=== PATIENT | female | born 1995 | race African-American/Black ===

== ENCOUNTER 2024-09-08 22:57 | Day surgery (SDC) | payer OTHER, SELFPAY ==
--- NOTE | ~2024-09-08 | US_ITS ---
EXAMINATION: US INTRAOPERATIVE HISTORY: d C COMPARISON: Comparison is made with the prior examination dated 09/09/2024. FINDINGS: Ultrasound guidance was provided for a D&C in the OR. US/US guide intraoperative IMPRESSION: Ultrasound guidance for D&C. Electronically signed by: Chase Cornejo MD 09/09/2024 07:14 AM EDT
--- NOTE | ~2024-09-08 | US_ITS ---
CLINICAL HISTORY: aborting, retained products? US OB transabdominal and transvaginal Comparison: None Findings: Transabdominal scanning performed for overall anatomy. Transvaginal scanning performed for additional detail. Uterus measures 12 x 5.6 x 6 cm. There is an irregularly-shaped gestational sac and small yolk sac within the lower uterine segment/cervix. Gestational sac measures 3.8 x 1 x 1.2 cm. No pole is seen at this time. Bilateral ovaries were not able to be visualized. There is no free fluid in the pelvis. IMPRESSION: Irregularly-shaped gestational sac with a small yolk sac within the lower uterine segment/cervix suggestive of in progress. No pole. This document has been electronically signed by: Graham Lawson MD on 09/09/2024 04:27:28
[2024-09-08 23:22] VITALS: BP 160/110; PULSE 146; O2SAT 99
[2024-09-08 23:25] VITALS: BP 139/83; PULSE 138; RESP 20; TEMP 36.6; O2SAT 99; BMI 42.7
--- NOTE | 2024-09-08 23:41 | PC.NURSE ---
JAZIEL bartholomew aware of HR and symptoms
[2024-09-08 23:43] LABS: MANUAL DIFF FLAG NO
[2024-09-08 23:47] LABS: Basophils Percent Auto 0.2 % (0-2); Eosinophils Absolute Auto 0.2 X10*3/uL (0.0-0.4); Eosinophils Percent Auto 2.2 % (0-4); Hemoglobin 11.8 g/dl (12.0-16.0); Imm Gran Abs Auto 0.02 X10*3/uL (0.00-0.03); Imm Gran Pct Auto 0.2 % (0.0-0.4); Lymphocytes Absolute Auto 3.8 X10*3/uL (1.2-4.9); Lymphocytes Percent Auto 41.6 % (20-40); Mean Corpuscular HGB Conc 32.8 g/dl (31.0-35.0); Mean Corpuscular Hemoglobin 27.2 pg (27.0-33.0); Mean Corpuscular Volume 82.9 fL (80.0-98.0); Mean Platelet Volume 9.3 fL (9.4-12.3); Monocytes Absolute Auto 0.5 X10*3/uL (0.1-1.2); Monocytes Percent Auto 5.5 % (2-11); Neutrophils Absolute Auto 4.6 x10*3/uL (2.0-8.3); Neutrophils Percent Auto 50.3 % (45-73); Platelet Count 356 X10*3/uL (160-400); Red Blood Count 4.34 X10*6/uL (4.20-5.50); Red Cell Distribution Width 12.7 % (11.0-16.0); White Blood Count 9.1 X10*3/uL (4.8-10.8)
--- OUTSIDE RECORDS SUMMARY | 2024-09-08 23:47 | XMS_ITS | Encounter Summary ---
Author Organization [facility] Address [address] [place] [address] Care Team Providers Care Wood Gluer Name Role Phone Les Meier MD Primary Care Provider Reason for Visit * Reason Onset Date Comments Letter for School/Work 09/04/2024 Encounter Details Date Type Department Care Team ([facility] st Contact Info) Description 09/04/2024 Telephone Obstetrics and Gynecology - [place] [address] [place] [phone] Elaina Caraballo, [facility] [address] [place] [address] Letter for School/Work Social History Tobacco Use Types Packs/Day Years Used Date Smoking Tobacco: Never Smokeless Tobacco: Never Alcohol Use Standard Drinks/Week Comments No 0 (1 standard drink = 0.6 oz pur e alcohol) Housing Instability Answer Date Recorde d Are you worried that in the next 2 months you may not have stable housing? No 07/20/2024 Food Access & Nutrition Answer Date Rec orded Do you have access to a vari ety of food including fruits and vegetables? Yes 07/20/2024 Access to Healthcare Answer Date Record ed Within the last 3 months, ho w many times did you visit the emergency department for your medical care? 0 07/20/2024 Health Literacy Answer Date Recorded How often do you need to hav e someone help you when you read instructions, pamphlets, or other written material from your doctor or pharmacy? Never 07/20/2024 Caregiver: How often do you need to have someone help you when you read instructions, pamphlets, or other written material from your doctor or pharmacy? Not on file 07/20/2024 Financial Risk Answer Date Recorded How hard is it for you to pa y for the very basics like food, housing, medical care, and air conditioning / heating? Not very hard 07/20/2024 Transportation Answer Date Recorded Has the lack of transportati on kept you from meetings, work, or from getting things needed for daily living? No Has the lack of transportati on kept you from medical appointments or from getting medications? No 07/20/2024 Social Isolation Answer Date Recorded How often do you feel lonely or isolated from th ose around you? Never 07/20/2024 Food Risk Answer Date Recorded Within the past 12 months we worried whether our food would run out before we got money to buy more. Never true 07/20/2024 Within the past 12 months th e food we bought just didn't last and we didn't have money to get more. Never true 07/20/2024 Dependent Care Answer Date Recorded Do you need help finding or paying for care for your loved ones. For example, child day care center worker or elderly care for an older adult? No 07/20/2024 Education Answer Date Recorded Do you think completing more education or training, like finishing a GED, going to college, or learning a trade, would be helpful for you? Yes 07/20/2024 Employment and Income Answer Date Recor ded During the last four weeks, have you been actively looking for work? No 07/20/2024 Living Situation Answer Date Recorded What is your living situation? 0 07/20/2024 Estimated Date of Delivery Comme nts Yes 03/24/2025 Based on last me nstrual period of 06/17/2024 Sex and Gender Information Value Date Recorded Sex Assigned at Not on file Legal Sex Female 9:20 PM EST Gender Identity Not on file Sexual Orientation Not on file documented as of this encounter Progress Notes * Lona James - 09/04/2024 10:09 AM EDT Chief Complaint/problem: patient states that elaina caraballo wrote her a letter to be excused from workSaturday and . She's like one for today as well How long has the patient had this problem? Pt???s EQUALIZER OPERATOR provider: Elaina Caraballo CNM Last menstrual period (LMP) or EDC (due date): documented in this encounter Plan of Treatment Upcoming Encounters Date Type Department Care Team (Late st Contact Info) Description 09/14/2024 10:30 AM EDT Initial Obstetrics and Gynecology - [address] [phone] Mary Gavin MD [address] [place], [place] 09/14/2024 11:00 AM EDT Ancillary Procedure Maternal Medicine - [address] [phone] 01/28/2025 11:30 AM EDT Office Visit Adult Medicine [address] [phone] Les Meier MD [address] [place] [address] documented as of this encounter Visit Diagnoses Not on filedocumented in this encounter Additional Health Concerns Assessment Noted Time PHQ-9 Depression Total Score: 0 08/25/19 10:01 PM EDT documented as of this encounter Care Teams Wood Gluer Relationship Specialty Start Date End Date Les Meier MD [address] [place] [address] PCP - General Internal Medicine 08/28/24 documented as of this encounter
--- OUTSIDE RECORDS SUMMARY | 2024-09-08 23:47 | XMS_ITS | Encounter Summary ---
Author Organization [facility] Address [address] [place] [address] Care Team Providers Care Access Clinician Name Role Phone Les Meier MD Primary Care Provider Encounter Details Date Type Department Care Team (Late st Contact Info) Description 09/08/2024 Telephone Obstetrics & Gynecology - [address] [phone] Elmira Larry, [address] [phone] Social History Tobacco Use Types Packs/Day Years [...] for your loved ones. For example, child & adolescent psychiatrist or elderly care for an older adult? [...] as of this encounter Progress Notes * Elmira Larry, DARSHAN - 09/08/2024 9:50 PM EDT Marco Antonio reports she is having a miscarriage. She has been bleeding since last week like a period. Then 1 am this morning she had heavy bleeding with clots lasting 3 hrs. Now the bleeding returned, she is bleeding so heavy she can't get off the toilet to put a pad on. I advised to go to the ED for evaluation, her bleeding is heavier and longer than expected for a SAB. She reports an understanding and agrees with the plan. Will have data processing mechanic follow up with her in the am. Elmira Larry CNM documented in this encounter Plan of Treatment Upcoming Encounters Date Type Department Care Team (Late st Contact Info) Description 09/14/2024 10:30 AM EDT Initial Obstetrics and Gynecology - [address] [phone] Mary Gavin MD [address], [place] 09/14/2024 11:00 AM EDT Ancillary Procedure Maternal Medicine - [address] [phone] 01/28/2025 11:30 AM EDT Office Visit Adult Medicine [facility] - [address] [phone] Les Meier MD [address] [place] [address] documented as of this encounter Visit Diagnoses Not on filedocumented in this encounter Additional Health Concerns Assessment Noted Time PHQ-9 Depression Total Score: 0 08/25/19 25 10:01 PM EDT documented as of this encounter Care Teams Access Clinician Relationship Specialty Start Date End Date Les Meier MD [address] [place] [address] PCP - General Internal Medicine 08/28/24 documented as of this encounter
--- OUTSIDE RECORDS SUMMARY | 2024-09-08 23:47 | XMS_ITS | Clinical Summary ---
Author Organization [facility] [address] [place] [address] [place] [phone] Phone Care Team Providers Care Fruit Buyer Name Role Phone Les Meier MD Primary Care Provider Allergies No known active allergies Medications metroNIDAZOLE (METROGEL) 0.75 % (37.5mg/5 gram) vaginal gel Insert 1 Applicatorful into the vagina at bedtime. for 5 nights 4 Active PNV,calcium 79-ebru-dgzlb acid (M- Plus) 27 mg iron- 1 mg tablet Take 1 tablet by mouth 1 (one) time each day. 4 Active PNV no.95/ferrous fum/folic ac ( ORAL) Take 1 tablet by mouth 1 (one) time each day. 3 Active vitamin iron fum-folic acid 27-0.8 mg per tabletIndicati ons:Irregular menstrual cycle Take 1 tablet by mouth 1 (one) time each day. 30 each 11 5 07/27/19 26 Active Active Problems Problem Noted Date Diagnosed Date Maternal varicella, non-immune 09/01/2024 Marijuana use 09/01/2024 Overview (09/01/2024): + at intake in multigravida 08/31/2024 Overview (08/31/2024): 1. [facility] site: [facility]: [address] [place] [address] ([phone]) 2. Delivery site: [facility] 3. Mobile Mommas: 4. Dating criteria: LMP 5. Blood type: A+ 6. Genetic screening: Date: Result: Panorama: Ordered Horizon: Ordered Nuchal: Scheduled Survey: MSAFP: 6. GBS: Date: 7. FOB name: Tony Camargo 8. Plans A. Epidural or other pain management - B. Labor support identified - C. Tdap - Date: Flu - Date: D. Breast or Bottle feed: E. Baby's name - F. Circumcision - 9. Hospital Course: Obesity in 08/31/2024 Overview (08/31/2024): BMI 42 HgbA1C and 1 hour GTT at initial labs ASA 162mg at 12 weeks until delivery Detailed anatomy ultrasound Repeat GTT 24-28 weeks if early is normal Pre-preg BMI 35-39.9: NST weekly at 37 weeks Pre-preg BMI >40: NST weekly at 34 weeks Pre-preg BMI >45: NST weekly at 32 weeks Growth US at 32 and 36 weeks for BMI >40 BMI of 50 by 28wks transfer to [facility] DVT prophylaxis- Lovenox if CS and BMI >35 History of section 08/31/2024 Estimated Date of Delivery Comme nts Yes 03/24/2025 Based on last me nstrual period of 06/17/2024 Resolved Problems Problem Noted Date Diagnosed Date Resolved Date COVID-19 virus detected 09/24/2019 04/0 06/2024 Overview (03/16/2024): Returned pt's call, pt reports she was tested for Covid-19 yesterday and results came back positive today. Pt reports she is stuffy but not feeling too bad . Pt had OB f/u 09/29/19-cancelled and rescheduled to 10/13/19 at 11:15 (last OB appt of the morning). Pt instructed to call if sx worsen or she is hospitalized. Pt also concerned because she is supposed to have her gtt done at this appt. Advised pt once she is well and out of quarantine, the provider will address that. Pt verbalized understanding and agrees to plan. Encounters Date Type Department Care Team Description 09/08/2024 Telephone Obstetrics & Gynecology - [address] [phone] Elmira Larry CNM 09/04/2024 Telephone Obstetrics and Gynecology - [address] [phone] Keturah Ascencio CNM Letter for School/Work 09/02/2024 11:15 AM EDT Routine Obstetrics and Gynecology - [address] [phone] Keturah Ascencio CNM Bleeding in early (Primary Dx) 09/02/2024 10:56 AM EDT - 09/02/2024 11:59 PM EDT Hospital Encounter Radiology Department - [address] [phone] Hemorrhage in early Discharge Disposition: Home or Self Care 09/01/2024 Telephone Obstetrics and Gynecology - [address] [phone] Keturah Ascencio CNM Problem 08/31/2024 10:00 AM EDT Clinical Support Obstetrics and Gynecology - [address] [phone] care, subsequent in first trimester (Primary Dx); Obesity in ; in multigravida; History of section 07/27/2024 9:00 AM EST Clinical Support Obstetrics and Gynecology - [address] [phone] Irregular menstrual cycle (Primary Dx) from Last 3 Months Immunizations Name Administration Dates Next Due HPV, Quadrivalent 2009 Hepatitis B Pediatric (Enger ix B; Recombivax HB) to less than 20 yo 1994 Influenza Quadravalent, MDCK , 0.5ml, preservative free (Flucelvax) 6mo and older 02/03/2020 Influenza trivalent, 0.5mL, preservative free (Fluarix; FluLaval; Fluzone) ages 6mo and older (Afluria) 3 years and older 04/05/2015 MMR, measles mumps and rubel la Live (Priorix; M-M-R II) 12mo and older 06/22/2020,08/13/1995 Tdap Tetanus diptheria acell ular pertussis (Boostrix; Adacel) 7yo and older 12/16/2019,04/05/2015 Surgical History Surgery Date Site/Laterality Comments TONSILLECTOMY ADENOIDECTOMY, BILATERAL MYRINGOTOMY AND TUBES PROCEDURE: MD TONSILLECTOMY & ADENOIDECTOMY <AGE 12 CHOLECYSTECTOMY PROCEDURE: MD CHOLECYSTECTOMY SECTION 03/08/2020 PROCEDURE: HISTORICAL DELIVERY Medical History Medical History Date Comments Marijuana use 08/07/2019 DX:Marijuana use Obesity (BMI 30-39.9) 08/06/2019 DX:Obesity (BMI 30-39.9); COMMENT: Pts stated pre weight 215- BMI 38.1 08/06/19 ordered HA1c HgbA1C at initial labs- normal One hour GTT in first trimester - ordered 08/24/2019 Repeat GTT 24-28 weeks if early is normal Level 2 Survey Growth US at 32 and 36 weeks for BMI?40 Weekly NST at 32 weeks for BMI? 45 Screen for DRAKE (using tool) and refer for sleep study if positive Anesthesi* COVID-19 virus detected 09/24/2019 DX:COVID -19 virus detected; COMMENT: Returned pt's call, pt reports she was tested for Covid-19 yesterday and results came back positive today. Pt reports she is stuffy but not feeling too bad . Pt had OB f/u 09/29/19-cancelled and rescheduled to 10/13/19 at 11:15 (last OB appt of the morning). Pt instructed to call if sx worsen or she is hospitalized. Pt also concerned because she is supposed to h* Gonorrhea Family History Medical History Relation Name Comments No Known Problems Brother No Known Problems Daughter Rocio : 2019 Diabetes Father Hypertension Father Hypertension Maternal Grandfather Breast cancer Maternal Grandmother Diabetes Maternal Grandmother Hypertension Mother No Known Problems Paternal Grandfather No Known Problems Paternal Grandmother No Known Problems Sister Cervical cancer Neg Hx Colon cancer Neg Hx Ovarian cancer Neg Hx Uterine cancer Neg Hx Relation Name Status Comments Brother Alive Daughter Rocio Alive Father Alive Maternal Grandfather Alive Maternal Grandmother Mother Alive Paternal Grandfather Paternal Grandmother Sister Alive Social History Tobacco Use Types Packs/Day Years [...] care for your loved ones. For example, children's zoo caretaker or elderly care for an older adult? [...] on file Sexual Orientation Not on file Obstetrics History Para Term AB IAB SAB Ectopic Multiple Livin g Live Births 3 1 1 0 1 1 1 1 Date Outcome GA Total Labor Labor/2nd/3rd Weight Sex Type Anes PTL Josie A1 A5 Name Clin 2012 IAB Surgica l Praveen 03/08 Term 41w 0d 3402 g (120 oz) F CS-LVer tical Livin g Jaidal ee Current Summary Episode Dates Number of Fetuses Estimated Date of Delivery 08/31/2024 - Present (09/08/2024) 03/24/2025 (set by Mari Sinha RN on 08/31/2024 based on Last Menstrual Period on 06/17/2024) Dating Summary Based On KHADIJAH GA Diff Last Menstrual Period on 06/17/2024 03/24/2025 Working Overview and Plan Delivery Plans Post-Delivery Plans Planned delivery method: Feedin g intentions:Exclusive Planned delivery location:[facility] Circumcis ion requested:Provider Performed Acceptable blood products:All Vitals Pregravid Weight Height TWG (As of 09/08/2024) Pregrav id BMI 109 kg (240 lb) 1.6 m (63 ) 2.722 kg (6 lb) 42.52 Notes Progress Notes - Routine Pre jose - 09/02/2024 - GA:11w0d 09/02/2024 - 11w0d - Keturah Ascencio CNM OB Visit: Vitals BP: 131/82 Weight: 112 kg (246 lb) 29 y.o. old female at 11w0d. was unplanned but welcomed, she is sure of LMP. She was sent up from for review of US findings. Pt called yesterday with complaints of crmaping since yesterday and intermittent vaginal bleeding x4 days. Bleeding was light spotting and heavier today after ultrasound. Today US demonstrated: Impression Single intrauterine with estimated gestational age 6weeks and 3days without cardiac activity. Findings are concerning for demise. Close clinical follow-up, beta hCg and serial ultrasound as clinically indicated. Her BP is reviewed and is Normal. She does not require a urine drug screen. She stopped MJ use with pos preg test. She admits to recent urgent care visit, treated for BV, reports STD testing done and negative. She finished Metrogel 5 days ago. Blood type A+, normal CBC. Spec exam today demonstrate BRB- use of 3 scopettes to clear vault, no clots. Plan- reviewed US findings with pt and she will get HCG today and repeat on Saturday. Monitor bleeding, bleeding precautions given and when to seek emergency care. Pt aware this is likely a Missed AB. Wants expectant management for now, which is appropriate as she is already experiencing bleeding. Has apt in 2 weeks- told pt to keep apt for follow up. Keturah Ascencio CNM on 09/02/2024 at 12:36 PM EDT Progress Notes - Clinical [place] pport - 08/31/2024 - GA:10w5d 08/31/2024 - 10w5d - Mari Sinha RN Marco Antonio Oliveira is a 29 y.o. old female at 10w5d. This is a [place] The patient feels happy about the . The FOB is supportive. His name is Tony Camargo. This is their second baby together. They have a four year old together, Rocio. Patient's last menstrual period was Patient's last menstrual period was 06/17/2024. (exact date)., which would make her currently 10w5d with an Estimated Date of Delivery: 03/24/25. She is certain of her date. An ultrasound has not been ordered to confirm dating Patient has significant history of: for failure to progress. OB Past Medical History: Have you had or do you currently have: Diabetes? No Hypertension? No Heart disease, Mitral valve Prolapse, or Rheumatic fever? No An Autoimmune disease such as Lupus or Rheumatoid Arthritis? No Epilepsy, Seizures, or Spells? No Migraine Headaches? No Stroke or loss of function or sensation? No Additional Questions: Have you ever been treated for anxiety and/or depression? No Are you having problems with crying spells or loss of self-esteem? No Have you ever required psychiatric care? No Have you ever had hepatitis, liver disease or jaundice? No Have you ever been treated for blood clots in your veins, deep venous thrombosis, inflammation in the veins, thrombosis, phlebitis, pulmonary embolism or varicosities? No Have you had excessive bleeding after surgery or dental work? No Do you bleed more than other women after a cut or scratch? No Do you have a history of anemia? No Have you ever had Thyroid problems or taken Thyroid medications? No Do you have any other Endocrine Problems (ie. PCOS)? No Have you ever been in a major accident or suffered serious trauma? No Within the last year, has anyone hit, slapped, kicked or otherwise hurt you? No In the last year, has anyone forced you to have sex when you didn't want to? No Do you feel safe at home? No Have you ever received a blood transfusion? No Would you refuse a blood transfusion if a doctor judged to be medically necessary? No Would you rather than receive a blood transfusion? No If you answered yes to the above questions, is this for gnosticism reasons? No Do you know what your blood type is or if you are Rh Negative? No Have you ever had abnormal antibodies in your blood? No Have you ever had asthma? No Have you every had Tuberculosis? No Have you ever had any breast problems? No Have you ever breast fed? No Have you ever had any gynecological surgical procedures such as cervical conization, LEEP procedure, Laser treatment, cryosurgery of the cervix or dilation and curettage, etc? Yes-in 2012-d &c Have you had any other surgical procedures? Yes-tonsillectomy, adenoidectomy, , kristi Have you ever been hospitalized overnight for a non-surgical reason excluding normal delivery? No Have you ever had anesthesia complications? No Have you ever had an abnormal pap smear? No Do you have a history of abnormalties of the uterus? No Did your mother take TONY or any other hormones when she was with you? No Did it take more than one year to become ? No Have you ever been evaluated or treated for infertility? No Is there a history of medical problems in your family which you feel might adversely affect your health or ? No Do you have any other problems we have not asked you about which you feel may be important for us to know for this ? No Do you currently have any of the following symptoms since your last menstrual period: Abdominal pain, blood in the stool or urine, chest pain, shortness of breath, coughing or vomiting up blood, your heart racing or skipping beats, nausea and/or vomiting, pain on urination, or vaginal discharge or vaginal bleeding? Yes-pt was treated for BV -finished treatment on Saturday-did notice some blood in her discharge last night-today it was brownish-no cramping. Will monitor-and if any additional bleeding she will let us know. OB Infection History: Do you object to being tested for Hepatitis B? No Do you object to being tested for HIV? No Do you feel that you are at high risk for coming contact with the AIDS virus? No Have you ever been treated for tuberculosis? No Have you ever received the BCG vaccine? No Have you ever had a positive skin test for Tuberculosis? No Do you live with someone who has Tuberculosis? No Have you ever been exposed to Tuberculosis? No Do you have Genital Herpes? No Does your partner have Genital Herpes? No Have you had a rash or viral illness since your last period? Yes-eczema Have you ever had Gonorrhea, Chlamydia, Syphilis, Venereal Warts, Trichomoniasis, Pelvic Inflammatory Disease (PID) or any other sexually transmitted disease? Yes-chlamydia and gonorrhea--treated in past Do you know if you are a Group B Streptococcus Carrier? No Did you have the Chicken Pox/Varicella? No Were you vaccinated against Chicken Pox/Varicella? Yes Have you had any other infectious diseases? Yes-covid in previous Marco Antonio Oliveira has been instructed on the following: random urine drug screening due to history of drug use and an initial urine drug screen has been ordered. Marco Antonio Oliveira has also been informed of the standards engineer provider recommendation for first trimester nuchal lucency testing to be performed during her . Marco Antonio Oliveira has also been made aware of the time sensitive nature for this testing to be completed. . The patient now has a gestational age of 10w5d. The patient would be due for this testing prior to 14 weeks gestation which would be on 09/23/2024 . Nuchal scheduled 09/14/2024 at 1100am. Ethnicity Based Genetic Testing has been reviewed and the [employer] information sheet has been provided to the patient in their After Visit Summary. The patient was also advised that genetic testing may not be covered by all insurances. The patients states that they understand this information. The patient states that she has not had the genetic screening for Horizon 14 done in the past during a previous . The patient has agreed that she does want genetic testing for Horizon 14 and Panorama with Gender. The following Labs have been ordered: Obstetric Panel, HgA1c, Early Glucose Screen, Panorama with gender, and Horizon 14 panel She is aware that her insurance may or may not cover Panorama and/or Horizon 14 test and discussed valdivia only klein for test(s) - info given today in her after visit summary . She would like to proceed with testing. For Horizon Carrier Screening, if patient has [employer], [facility] or [employer]) insurances: Not Applicable Electronically signed by: Mari Sinha RN 08/31/24 10:23 AM EDT Last Filed Vital Signs Vital Sign Reading Time Taken Comments Blood Pressure 131/82 09/02/2024 11:40 AM EDT Pulse 89 09/02/2024 11:40 AM EDT Temperature - - Respiratory Rate 12 09/02/2024 11:40 AM EDT Oxygen Saturation - - Inhaled Oxygen Concentration - - Weight 112 kg (246 lb) 09/02/2024 11:40 AM EDT Height 160 cm (5' 3 ) 09/02/2024 11:40 AM EDT Body Mass Index 43.58 09/02/2024 11:40 AM EDT Plan of Treatment Upcoming Encounters Date Type Department Care Team (Late st Contact Info) Description 09/14/2024 10:30 AM EDT Initial Obstetrics and Gynecology - [address] [phone] Mary Gavin MD [address], [place] 09/14/2024 11:00 AM EDT Ancillary Procedure Maternal Medicine [address] [phone] 01/28/2025 11:30 AM EDT Office Visit Adult Medicine [address] [phone] Les Meier MD [address] [place], [place] Health Maintenance Due Date Last Done Comments Hepatitis B Vaccines (2 of 3 - 3-dose series) 1994 1994 HPV Vaccines (2 - 3-dose series) 09/09/2009 2009 COVID-19 Vaccine ( season) 2024 Cervical Cancer Screening: Pap Smear 10/20/2024 10/20/2021, 04/28/2018, 04/28/2018, Additional history exists Influenza Vaccine (Season Ended) 2025 02/03/2020, 04/05/2015 Cholesterol Screening (Lipid Panel) 04/29/2025 04/29/2020 Social Influencers of Health Screening 07/20/2025 07/20/2024 Depression Screening 08/24/2025 08/24/2024 DTaP,Tdap,and Td Vaccines (3 - Td or Tdap) 12/15/2029 12/16/2019, 04/05/2015 HIV Screening Completed 08/31/2024, 10/01, 10/14/2023 Hepatitis C Screening Completed 08/31/2024, 024 HIB Vaccines Aged Out No longer eligi ble based on patient's age to complete this topic Hepatitis A Vaccines Aged Out No long er eligible based on patient's age to complete this topic IPV Vaccines Aged Out No longer eligi ble based on patient's age to complete this topic Meningococcal ACWY Vaccine Aged Out N o longer eligible based on patient's age to complete this topic Meningococcal B Vaccine Aged Out No l onger eligible based on patient's age to complete this topic Pneumococcal Vaccine: Pediatrics (0 to 5 Years) and At-Risk Patients (6 to 64 Years) Aged Out No longer eligible based on patient's age to complete this topic RSV Immunization Patients Under 20 months Aged Out No longer eligible based on patient's age to complete this topic Procedures Procedure Name Priority Date/Time Associated Diagnosis Comments HCG, QUANTITATIVE Routine 09/04/2024 9:5 0 AM EDT Bleeding in early HCG, QUANTITATIVE Routine 09/02/2024 12: 38 PM EDT Bleeding in early US OB LESS 14 WKS SINGLE OR FIRST GESTATION STAT 09/02/2024 11:21 AM EDT Hemorrhage in early CBC WITH AUTO DIFFERENTIAL Routine 08/31/2024 12:36 PM EDT care, subsequent in first trimester GTT GESTATIONAL 1 HOUR Routine 12:36 PM EDT care, subsequent in first trimester VARICELLA ZOSTER ANTIBODY IGG Routine 08/31/2024 12:36 PM EDT care, subsequent in first trimester HEPATITIS B SURFACE ANTIGEN WITH CONFIRMATION Routine 08/31/2024 12:36 PM EDT care, subsequent in first trimester CBC AND DIFFERENTIAL Routine 08/31/2024 12:36 PM EDT care, subsequent in first trimester HEPATITIS C ANTIBODY Routine 08/31/2024 12:36 PM EDT care, subsequent in first trimester HIV 1, 2 ANTIBODY, P24 ANTIGEN WITH REFLEX TO DIFFERENTIATION Routine 08/31/2024 12:36 PM EDT care, subsequent in first trimester RUBELLA ANTIBODY IGG Routine 08/31/2024 12:36 PM EDT care, subsequent in first trimester TREPONEMA PALLIDUM ANTIBODY WITH REFLEX TO RPR AND PARTICLE AGGLUTINATION Routine 08/31/2024 12:36 PM EDT care, subsequent in first trimester TYPE AND SCREEN Routine 08/31/2024 12:36 PM EDT care, subsequent in first trimester GLUCOSE TOLERANCE TEST, 1H GESTATION Routine 08/31/2024 12:36 PM EDT care, subsequent in first trimester HEMOGLOBIN A1C Routine 08/31/2024 12:36 PM EDT care, subsequent in first trimester VENIPUNCTURE CHARGE Routine 08/31/2024 1 2:36 PM EDT care, subsequent , first trimester THC, URINE, CONFIRMATION Routine 08/31/2024 11:36 AM EDT care, subsequent in first trimester DRUG ABUSE SCREEN EXPANDED WITH REFLEX CONFIRMATION, URINE Routine 08/31/2024 11:36 AM EDT care, subsequent in first trimester CULTURE URINE Routine 08/31/2024 11:36 AM EDT care, subsequent in first trimester POC , URINE DIAGNOSTIC Routine 07/27/2024 9:07 AM EST Irregular menstrual cycle PAP SMEAR Routine 10/20/2021 LIPID PANEL Routine 04/29/2020 from Last 3 Months or Most Recently Relevant to Health Maintenance Results * HCG, quantitative (09/04/2024 9:50 AM EDT) Only the most recent of2 resultswithin the time period is included. hCG Quant 2,174 mIU/mL LAB CHEMISTRY METHOD 09/04/2024 1:36 PM EDT [facility] Blood Venous blood specimen / Unknown Venipuncture / Unknown 09/04/2024 9:50 AM EDT 09/04/2024 9:50 AM EDT Narrative MELBA OVIEDO PA ([facility]) [facility] - 09/04/2024 1:36 PM EDT Quantitative HCG Reference Ranges Time after Conception ? MIU/ML 0.2-1 Week ? 5-50 1-2 ?? Weeks ? 50-500 2-3 ?? Weeks ?100-5,000 3-4 ?? Weeks ?500-10,000 4-5 ?? Weeks ?1,000-50,000 5-6 ?? Weeks ? 10,000-100,000 6-8 ?? Weeks ? 15,000-200,000 2-3 ?? Months ?10,000-100,000 2nd Trimester ?1,000-94,000 3rd Trimester ?2,500-90,000 Non- Females ?1-3 us Keturah Ascencio CNAlejandra LAB BLOOD ORDERABLES Final Res ult [facility] [address] [place] [address], * US OB Less 14 Wks Single or First Gestation (09/02/2024 11:21 AM EDT) Anatomical Region Laterality Modality Body Ultrasound 09/02/2024 11:4 6 AM EDT Impressions 09/02/2024 11:49 AM EDT Single intrauterine with estimated gestational age 6weeks and 3days without cardiac activity. ??Findings are concerning for demise. ??Close clinical follow-up, beta hCg and serial ultrasound as clinically indicated. Findings were sent to Keturah Ascencio on 09/02/2024 at 11:30 AM via Grata text -------- FINAL REPORT -------- Dictated By: Dimitrios Anne Dictated Date: 09/02/2024 11:46 ET Assigned Physician: Dimitrios Anne Reviewed and Electronically Signed By: Dimitrios Anne Signed Date: 09/02/2024 11:49 ET Workstation ID: [id number] Transcribed By: Self Edit Transcribed Date: 09/02/2024 11:46 ET Narrative 09/02/2024 11:49 AM EDT ULTRASOUND UTERUS LESS THAN 14 WEEKS, SINGLE CLINICAL HISTORY: viability COMPARISON: No similar prior. COMMENT: Initially, transabdominal imaging was performed. To better evaluate the intrauterine gestation, transvaginal imaging was then performed. A single intrauterine gestational sac is identified and irregular in shape measuring 2.0 x 1.0 x 1.8 cm, corresponding to an estimated gestational age of 6weeks and 3days. ??A yolk sac is not definitively identified. ??A probable pole measures 0.2 cm dating the fetus at 6 weeks 1 day. ??No embryonic cardiac activity is identified. ??The cervix measures 3.5 cm. The right ovary measures 2.1 x 1.3 x 1.5 cm and is grossly within normal limits. The left ovary measures 2.9 x 1.8 x 1.4 cm and is grossly within normal limits. Procedure Note Dimitrios Anne MD - 09/02/2024 ULTRASOUND UTERUS LESS THAN 14 WEEKS, SINGLE CLINICAL HISTORY: viability COMPARISON: No similar prior. COMMENT: Initially, transabdominal imaging was performed. To better evaluate theintrauterine gestation, transvaginal imaging was then performed. A single intrauterine gestational sac is identified and irregular in shapemeasuring 2.0 x 1.0 x 1.8 cm, corresponding to an estimated gestationalage of 6weeks and 3days. A yolk sac is not definitively identified. Aprobable pole measures 0.2 cm dating the fetus at 6 weeks 1 day. Noembryonic cardiac activity is identified. The cervix measures 3.5 cm. The right ovary measures 2.1 x 1.3 x 1.5 cm and is grossly within normallimits. The left ovary measures 2.9 x 1.8 x 1.4 cm and is grossly within normallimits. IMPRESSION: Single intrauterine with estimated gestational age 6weeks osm2vuti without cardiac activity. Findings are concerning for demise.Close clinical follow-up, beta hCg and serial ultrasound as clinicallyindicated. Findings were sent to Keturah Ascencio on 09/02/2024 at 11:30 AM via [employer] -------- FINAL REPORT -------- Dictated By: Dimitrios Anne Dictated Date: 09/02/2024 11:46 ET Assigned Physician: Dimitrios Anne Reviewed and Electronically Signed By: Dimitrios Anne Signed Date: 09/02/2024 11:49 ET Workstation ID: [id number] Transcribed By: Self Edit Transcribed Date: 09/02/2024 11:46 ET Mary Gavin MD IMG OB US PROCEDURES Final Result * Hepatitis C antibody (08/31/2024 12:36 PM EDT) [facility] Hepatitis C Antibody Negative Negative LAB CHEMISTRY METHOD 08/31/2024 3:[address] [facility] Blood Venous blood specimen / Unknown Venipuncture / Unknown 08/31/2024 12:36 PM EDT 08/31/2024 12:43 PM EDT Mary Gavin MD LAB BLOOD ORDERABLES Final Result [facility] [address] [place] [address], [place] [phone] * HIV 1,2 antibody, p24 antigen with reflex to differentiation (08/31/2024 12:36 PM EDT) HIV Combo AB/AG Negative Negative LAB CHEMISTRY METHOD 08/31/2024 3:[address] [facility] Blood Venous blood specimen / Unknown Venipuncture / Unknown 08/31/2024 12:36 PM EDT 08/31/2024 12:43 PM EDT [facility] - 08/31/2024 3:38 PM EDT This assay is a 4th generation assay allowing for earlier detection of HIV infection by detecting the presence of the HIV-1 p24 antigen as well as the traditional antibodies to HIV type 1 (including group O) and type 2. ??Use of a 4th generation assay is the current CDC recommendation for HIV screening. us Mary Gavin MD LAB BLOOD ORDERABLES Final Result Performing Organization Address [facility] Co de Phone Number [facility] [address] [place] [address], [place] [phone] * Hepatitis B surface antigen with reflex to confirmation (08/31/2024 12:36 PM EDT) Pathologist [facility] Hepatitis B Surface Ag Negative Negative LAB CHEMISTRY METHOD 08/31/2024 3:[address] [facility] Blood Venous blood specimen / Unknown Venipuncture / Unknown 08/31/2024 12:36 PM EDT 08/31/2024 12:43 PM EDT [facility] - 08/31/2024 3:09 PM EDT Over the counter supplements containing high doses of biotin may interfere with this assay. ??If interference is suspected, patients shoud be retested after refraining from biotin supplements for 72 hours. us Mary Gavin MD LAB BLOOD ORDERABLES Final Result Performing Organization Address [facility] Co de Phone Number [facility] [address] [place] [address], [place] [phone] * Treponema pallidum antibody with reflex to RPR and particle agglutination (08/31/2024 12:36 PM EDT) [facility] T. Pallidum Antibodies Negative Negative LAB CHEMISTRY METHOD 08/31/2024 3:[address] [facility] Blood Venous blood specimen / Unknown Venipuncture / Unknown 08/31/2024 12:36 PM EDT 08/31/2024 12:43 PM EDT us Mary Gavin MD LAB BLOOD ORDERABLES Final Result [facility] [address] [place] [address], [place] [phone] * Venipuncture charge (08/31/2024 12:36 PM EDT) [facility] Extra Tube Hold for add-ons. 08/31/2024 2:01 PM EDT [facility] ([facility]) Comment:Auto resulted. Blood Venous blood specimen / Unknown Venipuncture / Unknown 08/31/2024 12:36 PM EDT 08/31/2024 12:43 PM EDT us Mary Gavin MD LAB BLOOD ORDERABLES Final Result [facility] ([facility] PA, * GTT gestational 1 hour (08/31/2024 12:36 PM EDT) [facility] Glucose, 1 HR Gestational 126 See Comment mg/dL LAB CHEMISTRY METHOD 08/31/2024 2:[address] [facility] Blood Venous blood specimen / Unknown Venipuncture / Unknown 08/31/2024 12:36 PM EDT 08/31/2024 12:[address] [facility] - 08/31/2024 2:21 PM EDT Gestational Diabetes Challenge Reference Range: 1 hour Glucose <140 mg/dL us Mary Gavin MD LAB BLOOD ORDERABLES Final Result [facility] [address] [place] [address], * CBC auto differential (08/31/2024 12:36 PM EDT) [facility] Signature WBC 9.2 4.8 - 10.8 K/mcL LAB HEMETOLOGY METHOD 08/31/2024 2:[address] [facility] RBC 4.70 3.80 - 4.80 M/mcL LAB HEMETOLOGY METHOD 08/31/2024 2:[address] [facility] Hemoglobin 12.9 11.5 - 16.0 g/dL LAB HEMETOLOGY METHOD 08/31/2024 2:[address] [facility] Hematocrit 39.7 35.0 - 47.0 % LAB HEMETOLOGY METHOD 08/31/2024 2:[address] [facility] MCV 85.2 79.0 - 98.0 FL LAB HEMETOLOGY METHOD 08/31/2024 2:[address] [facility] MCH 27.7 27.0 - 32.0 pcg LAB HEMETOLOGY METHOD 08/31/2024 2:[address] [facility] MCHC 32.5 32.0 - 37.0 g/dL LAB HEMETOLOGY METHOD 08/31/2024 2:[address] [facility] RDW 12.9 11.0 - 15.0 % LAB HEMETOLOGY METHOD 08/31/2024 2:[address] [facility] Platelets 340 130 - 400 K/mcL LAB HEMETOLOGY METHOD 08/31/2024 2:[address] [facility] MPV 9.7 7.0 - 11.0 FL LAB HEMETOLOGY METHOD 08/31/2024 2:[address] [facility] NRBC 0.0 <1.0 % LAB HEMETOLOGY METHOD 08/31/2024 2:08 PM [facility] NRBC Absolute 0.00 <0.10 K/mcL LAB HEMETOLOGY METHOD 08/31/2024 2:08 PM [facility] Neutrophils Relative 62.4 % LAB HEMETOLOGY METHOD 08/31/2024 2:08 PM [facility] Lymphocytes Relative 29.7 % LAB HEMETOLOGY METHOD 08/31/2024 2:08 PM [facility] Monocytes Relative 4.7 % LAB HEMETOLOGY METHOD 08/31/2024 2:08 PM [facility] Eosinophils Relative 2.7 % LAB HEMETOLOGY METHOD 08/31/2024 2:08 PM [facility] Basophils Relative 0.2 % LAB HEMETOLOGY METHOD 08/31/2024 2:08 PM [facility] Immature Granulocytes Relative 0.3 % LAB HEMETOLOGY METHOD 08/31/2024 2:08 PM [facility] Neutrophils Absolute 5.71 1.50 - 7.00 K/mcL LAB HEMETOLOGY METHOD 08/31/2024 2:08 PM [facility] Lymphocytes Absolute 2.72 1.00 - 5.00 K/mcL LAB HEMETOLOGY METHOD 08/31/2024 2:08 PM [facility] Monocytes Absolute 0.43 0.20 - 1.00 K/mcL LAB HEMETOLOGY METHOD 08/31/2024 2:08 PM [facility] Eosinophils Absolute 0.25 0.00 - 0.50 K/mcL LAB HEMETOLOGY METHOD 08/31/2024 2:08 PM [facility] Basophils Absolute 0.02 0.00 - 0.20 K/mcL LAB HEMETOLOGY METHOD 08/31/2024 2:[address] [facility] Immature Granulocytes Absolute 0.03 0.00 - 0.03 K/mcL LAB HEMETOLOGY METHOD 08/31/2024 2:[address] [facility] Blood Venous blood specimen / Unknown Venipuncture / Unknown 08/31/2024 12:36 PM EDT 08/31/2024 12:43 PM EDT us Mary Gavin MD LAB BLOOD ORDERABLES Final Result Performing Organization Address [facility] Co de Phone Number [facility] [address] [place] [address], [place] [phone] * Rubella antibody IgG (08/31/2024 12:36 PM EDT) Rubella IgG Quant 46.0 >=10.0 I Unit/mL LAB CHEMISTRY METHOD 08/31/2024 4:[address] [facility] Rubella IgG Antibody Interp Positive Positive LAB CHEMISTRY METHOD 08/31/2024 4:[address] [facility] Blood Venous blood specimen / Unknown Venipuncture / Unknown 08/31/2024 12:36 PM EDT 08/31/2024 12:43 PM EDT us Mary Gavin MD LAB BLOOD ORDERABLES Final Result Performing Organization Address [facility]/ZIP Co de Phone Number [facility] [address] [place] [address], [place] [phone] * Type and screen (08/31/2024 12:36 PM EDT) ABO Group A 08/31/2024 2:[address] [facility] Rh Type Positive 08/31/2024 2:[address] [facility] Antibody Screen Negative 08/31/2024 2:[address] [facility] Blood Venous blood specimen / Unknown Venipuncture / Unknown 08/31/2024 12:36 PM EDT 08/31/2024 12:43 PM EDT us Mary Gavin MD LAB BLOOD BANK TEST ORDERAB LES Final Result Performing Organization Address [facility] de Phone Number [facility] [address] [place] [address], * (ABNORMAL) Varicella zoster antibody IgG (08/31/2024 12:36 PM EDT) Pathologist [facility] Varicella IgG Negative( A) Positive LAB CHEMISTRY METHOD 09/01/2024 8:[address] [facility] Varicella Zoster IgG 0.23(L) >=1.00 S/CO LAB CHEMISTRY METHOD 09/01/2024 8:[address] [facility] Blood Venous blood specimen / Unknown Venipuncture / Unknown 08/31/2024 12:36 PM EDT 08/31/2024 12:[address] [facility] - 09/01/2024 8:45 AM EDT Interpretation >= 1.00 S/CO is considered to be consistent with Immunity us Mary Gavin MD LAB BLOOD ORDERABLES Final Result Performing Organization Address [facility] Co de Phone Number [facility] [address] [place] [address], [place] [phone] * Hemoglobin A1c (08/31/2024 12:36 PM EDT) Pathologist [facility] Hemoglobin A1C 5.5 <6.5 % LAB CHEMISTRY METHOD 08/31/2024 9:[address] [facility] Mean Bld Glu Estim. 111 mg/dL LAB CHEMISTRY METHOD 08/31/2024 9:[address] [facility] Blood Venous blood specimen / Unknown Venipuncture / Unknown 08/31/2024 12:36 PM EDT 08/31/2024 12:43 PM EDT Mary Gavin MD LAB BLOOD ORDERABLES Final Result [facility] [address] [place] [address], * (ABNORMAL) Drug abuse screen expanded with reflex confirmation, urine (08/31/2024 11:36 AM EDT) Amphetamine Screen, Ur Negative Negative LAB CHEMISTRY METHOD 5 4:[address] [facility] Comment:Certain OTC medicati ons containing ephedrine, phenylephrine, pseudoephedrine and phenylpropanolamine can cause false positive results. Barbiturate Screen, Ur Negative Negative LAB CHEMISTRY METHOD 5 4:29 PM [facility] Benzodiazepine Screen, Ur Negative Negative LAB CHEMISTRY METHOD 5 4:[address] [facility] Cocaine Screen, Ur Negative Negative LAB CHEMISTRY METHOD 5 4:29 PM [facility] Opiate Screen, Ur Negative Negative LAB CHEMISTRY METHOD 5 4:29 PM [facility] Cannabinoid (THC) Screen, Ur Positive(A ) Negative LAB CHEMISTRY METHOD 5 4:[address] [facility] Comment:Specimens from patie nts taking pantoprazole sodium (Protonix) have been shown to produce false positive results. Fentanyl, Ur Negative Negative LAB CHEMISTRY METHOD 5 4:[address] [facility] Oxycodone Screen, Ur Negative Negative LAB CHEMISTRY METHOD 5 4:29 PM [facility] Urine Urine specimen obtained by clean catch procedure / Unknown Non-blood Collection / Unknown 08/31/2024 11:36 AM EDT 08/31/2024 11:36 AM EDT Narrative [facility] - 08/31/2024 4:29 PM EDT Assay cutoffs: Amphetamines ? 1000 ng/mL Barbiturates ?200 ng/mL Benzodiazepines ?? 200 ng/mL Cocaine ? 300 ng/mL Fentanyl ?1 ng/mL Opiates ? 300 ng/mL Oxycodone ? 100 ng/mL THC ?50 ng/mL Semi-quantitative assay for screening purposes only. Unconfirmed screening result should not be used for non-medical purposes. *POSITIVE RESULTS ARE AUTOMATICALLY SENT FOR ALTERNATE METHOD CONFIRMATION* us Mary Gavin MD LAB URINE ORDERABLES Final Result [facility] [address] [place] [address], * THC, urine, confirmation (08/31/2024 11:36 AM EDT) [facility] Signature Tetrahydrocannabinoid (THC) 44 ng/mL 09/04/2024 12:10 AM EDT [facility] Tetrahydrocannabinoid (THC)/Creatinine Ratio 36 12:10 AM EDT [facility] Creatinine 123 20 - 250 mg/dL 09/04/2024 12:10 AM EDT [facility] Adulterants Negative 09/04/2024 12:10 AM EDT [facility] Comment: ? The urine THC/creatinine ratio is the best ? monitor to determine the possibility of continued drug ? usage. ??With abstinence, the ratio should decrease ? within one week by a factor of two or more. ? Confirmation (GC/MS) Decision Limit ?THC ([id number]) ? 3 ng/mL ??Adulterant Decision Limit: ? General Oxidants ? 200 ug/mL ?The adulterant assay tests for General Oxidants, ??including Chromates and Nitrites. ??Adulterants are ??substances either ingested or added directly to a ??urine specimen to prevent the detection of drug use. If applicable, any drug confirmation testing reported here was developed and the performance characteristics determined by [facility]. This confirmation testing has not been cleared or approved by the FDA. The laboratory is regulated under CLIA as qualified to perform high-complexity testing. This test is used for patient testing purposes. It should not be regarded as investigational or for research. Test performed at [facility], [address] , [place], [place] ??[address] ? [phone] Angélica Urban MD, PhD - [employer] Urine Urine specimen obtained by clean catch procedure / Unknown Non-blood Collection / Unknown 08/31/2024 11:36 AM EDT 08/31/2024 4:29 PM EDT Mary Gavin MD LAB URINE ORDERABLES Final Result [facility] [address] [place] [address] * Culture urine (08/31/2024 11:36 AM EDT) Culture, Urine No growth 09/01/2024 9:[address] [facility] Urine Urine specimen obtained by clean catch procedure / Unknown Non-blood Collection / Unknown 08/31/2024 11:36 AM EDT 08/31/2024 11:36 AM EDT us Mary Gavin MD LAB MICROBIOLOGY - GENERAL ORDERABLES Final Result [facility] [address] [place] [address], [place] [phone] * POC , urine manually resulted (07/27/2024 9:07 AM EST) HCG, Ur POC Positive Negative POC hCG Int QC Pass? Yes Yes Urine Urine specimen obtained by clean catch procedure / Unknown 07/27/2024 9:07 AM EST Mary Gavin MD POINT OF CARE TEST ENTER/ED IT ORDERABLES Final Result * Pap smear (10/20/2021) 10/20/2021 Narrative HISTORICAL TESTING LAB RESULTING AGENCY - 11/03/2021 3:20 PM EDT [id number] THINPREP PAP, IMAGED: NEGATIVE FOR SQUAMOUS INTRAEPITHELIAL LESION AND MALIGNANCY. SHIFT IN ADAN, SUGGESTIVE OF BACTERIAL VAGINOSIS. NOTE: THE PAP TEST IS A SCREENING TEST WITH AN INHERENT FALSE NEGATIVE RATE. AUTOMATED PRESCREENING OF ALL LIQUID BASED SPECIMENS IS PERFORMED BY THE THINPREP IMAGING SYSTEM UNLESS OTHERWISE STATED. BETHANY GOMEZ(ASCP) (CASE ELECTRONICALLY SIGNED 11 03 2021) ADEQUACY: SATISFACTORY ENDOCERVICAL/TRANSFORMATION ZONE COMPONENT PRESENT. SOURCE: THINPREP PAP HPV IF ASCUS, CERVICAL, IMAGED CLINICAL INFORMATION: HPV IF DIAGNOSIS OF ASCUS. HORMONES, PAP HX NEGATIVE, [Z01.419] Result [facility] Keturah ALMONTE LAB CYTOLOGY ORDERABLES Final Result HISTORICAL TESTING LAB RESULTING AGENCY * Lipid panel (04/29/2020) LDL/HDL Ratio 4 0 - 4 Triglycerides 104 0 - 150 mg/dL Cholesterol 152 0 - 200 mg/dL HDL 40 >=40 mg/dL LDL Cholesterol 92 0 - 100 mg/dL Blood Venous blood specimen / Unknown Result [facility] Historical Provider LAB BLOOD ORDERABLES Monie jerez Result from Last 3 Months or Most Recently Relevant to Health Maintenance Insurance [facility] Care Teams Fruit Buyer Relationship Specialty Start Date End Date Les Meier MD [address] [place] [address] PCP - General Internal Medicine 08/28/24
--- OUTSIDE RECORDS SUMMARY | 2024-09-08 23:47 | XMS_ITS | Encounter Summary ---
Author Organization [facility] Address [address] [place] [address] Care Team Providers Care Measurement Psychologist Name Role Phone Les Meier MD Primary Care Provider Reason for Referral * Imaging (Emergency) - Pending Review Specialty Diagnoses / Procedures Referred By Contac t Referred To Contact Radiology Diagnoses Hemorrhage in early Procedures US OB Transvaginal Mary Gavin MD [address] [place] [address] Phone: tel: fax: [facility] Referral ID Status Reason Start Date Expiration Date V isits Requested Visits Authorized [id number] Pending Review 09/02/2024 09/02/2025 1 1 * Imaging (Emergency) - Pending Review Specialty Diagnoses / Procedures Referred By Contac t Referred To Contact Radiology Diagnoses Hemorrhage in early Procedures US OB Less 14 Wks Single or First Gestation Mary Gavin MD [address] [place], [place] Phone: tel: fax: [address] Phone: tel: Referral ID Status Reason Start Date Expiration Date V isits Requested Visits Authorized [id number] Pending Review 09/01/2024 09/01/2025 1 1 Reason for Visit * Imaging (Emergency) - Pending Review Specialty Diagnoses / Procedures Referred By Contsteve t Referred To Contact Radiology Diagnoses Hemorrhage in early Procedures US OB Less 14 Wks Single or First Gestation Mary Gavin MD [address] [place], [place] Phone: tel: fax: [address] Phone: tel: Referral ID Status Reason Start Date Expiration Date V isits Requested Visits Authorized [id number] Pending Review 09/01/2024 09/01/2025 1 1 Encounter Details Date Type Department Care Team (Latest Contact Info) Description 09/02/2024 10:56 AM EDT - 09/02/2024 11:59 PM EDT Hospital Encounter Radiology Department - [address] [phone] Hemorrhage in early Discharge Disposition: Home or Self Care Social History Tobacco Use Types Packs/Day Years [...] care for your loved ones. For example, director of child welfare services or elderly care for an older adult? [...] on file documented as of this encounter Medications at Time of Discharge metroNIDAZOLE (METROGEL) 0.75 % (37.5mg/5 gram) vaginal gel Insert 1 Applicatorful into the vagina at bedtime. for 5 nights 09/02/2023 PNV no.95/ferrous fum/folic ac ( ORAL) Take 1 tablet by mouth 1 (one) time each day. 10/08/2022 PNV,calcium 95-alwr-qxuav acid (M-Chiquita Plus) 27 mg iron- 1 mg tablet Take 1 tablet by mouth 1 (one) time each day. 12/20/2023 vitamin iron fum-folic acid 27-0.8 mg per tabletIndication s:Irregular menstrual cycle Take 1 tablet by mouth 1 (one) time each day. 30 each 07/27/2024 documented as of this encounter Discharge Disposition Disposition Code Departure Means Destination Home or Self Care documented in this encounter Plan of Treatment Upcoming Encounters Date Type Department Care Team (Late st Contact Info) Description 09/14/2024 10:30 AM EDT Initial Obstetrics and Gynecology - [address] [phone] Mary Gavin MD [address], [place] 09/14/2024 11:00 AM EDT Ancillary Procedure Maternal Medicine - [address] [phone] 01/28/2025 11:30 AM EDT Office Visit Adult Medicine [facility] - [address] [phone] Les Meier MD [address] [place] [address] Pending Results Name Type Priority Associated Diagnoses Date /Time US OB Transvaginal Imaging STAT Hemorrhage in early 09/02/2024 11:21 AM EDT Scheduled Orders Name Type Priority Associated Diagnoses Orde r Schedule US OB Transvaginal Imaging STAT Hemorrhage in early Once for 1 Occurrences starting 09/02/2024 until 09/02/2024 documented as of this encounter Procedures Procedure Name Priority Date/Time Associated Diagnosis Comments US OB LESS 14 WKS SINGLE OR FIRST GESTATION STAT 09/02/2024 11:21 AM EDT Hemorrhage in early documented in this encounter Results * US OB Less 14 Wks Single [...] Ascencio on 09/02/2024 at 11:30 AM via [employer] text -------- FINAL REPORT -------- Dictated By: Dimitrios Anne Dictated Date: 09/02/2024 11:46 ET Assigned Physician: Dimitrios Anne Reviewed and Electronically Signed By: Dimitrios Anne Signed Date: 09/02/2024 11:49 ET Workstation ID: [id number] Transcribed By: Self Edit Transcribed Date: 09/02/2024 [...] Single intrauterine with estimated gestational age 6weeks [id number] without cardiac activity. Findings are concerning for demise.Close clinical follow-up, beta hCg and serial ultrasound as clinicallyindicated. Findings were sent to Keturah Ascencio on 09/02/2024 at 11:30 AM via [employer] -------- FINAL REPORT -------- Dictated By: Dimitrios Anne Dictated Date: 09/02/2024 11:46 ET Assigned Physician: Dimitrios Anne Reviewed and Electronically Signed By: Dimitrios Anne Signed Date: 09/02/2024 11:49 ET Workstation ID: [id number] Transcribed By: Self Edit Transcribed Date: 09/02/2024 11:46 ET us Mary Gavin MD IMG OB US PROCEDURES Final Result documented in this encounter Visit Diagnoses Diagnosis Hemorrhage in early documented in this encounter Additional Health Concerns Assessment Noted Time PHQ-9 Depression Total Score: 0 08/25/19 25 10:01 PM EDT documented as of this encounter Care Teams Measurement Psychologist Relationship Specialty Start Date End Date Les Meier MD [address] [place] [address] PCP - General Internal Medicine 08/28/24 documented as of this encounter
--- OUTSIDE RECORDS SUMMARY | 2024-09-08 23:47 | XMS_ITS | Encounter Summary ---
Author Organization [facility] Address [address] [place] [address] Care Team Providers Care Rug Layer Name Role Phone Les Meier MD Primary Care Provider Reason for Visit * Reason Comments Ultrasound Encounter Details Date Type Department Care Team ([facility] st Contact Info) Description 09/02/2024 11:15 AM EDT Routine Obstetrics and Gynecology - [id number] [place] [address] Tricia Riggs, [facility] [address] [place] [address] Bleeding in early (Primary Dx) Social History Tobacco Use Types Packs/Day Years [...] care for your loved ones. For example, childcare center administrator or elderly care for an older adult? [...] on file documented as of this encounter Last Filed Vital Signs Vital Sign Reading [...] Mass Index 43.58 09/02/2024 11:40 AM EDT documented in this encounter Progress Notes * Tricia Riggs CNM - 09/02/2024 11:15 AM EDTAddended by: TRICIA RIGGS on: 09/04/2024 04:48 PM Modules accepted: Orders * Tricia Riggs CNM - 09/02/2024 11:15 AM EDT OB Visit: Vitals BP: 131/82 Weight: 112 [...] urine drug screen. She stopped MJ use withpos preg test. She admits to recent urgent care visit, treated for BV, reports STD testing done andnegative. She finished Metrogel 5 days ago. Blood [...] pt to keep apt for follow up. Tricia Riggs CNM on 09/02/2024 at 12:36 PM EDT documented in this encounter Plan of Treatment Upcoming Encounters Date Type Department Care Team (Late st Contact Info) Description 09/14/2024 10:30 AM EDT Initial Obstetrics and Gynecology - [address] [phone] Mary Gavin MD [address], [place] 09/14/2024 11:00 AM EDT Ancillary Procedure Maternal Medicine - [address] [phone] 01/28/2025 11:30 AM EDT Office Visit Adult Medicine [facility] - [address] [phone] Les Meier MD [address] [place], [place] Scheduled Orders Name Type Priority Associated Diagnoses Orde r Schedule HCG, quantitative Lab Routine Bleeding in early Twice a week for 2 Occurrences starting 09/04/2024 until 10/04/2024 documented as of this encounter Results * HCG, quantitative (09/04/2024 9:50 AM EDT) hCG Quant 2,174 mIU/mL LAB CHEMISTRY METHOD 09/04/2024 1:36 PM EDT [facility] Blood Venous blood specimen / Unknown Venipuncture / Unknown 09/04/2024 9:50 AM EDT 09/04/2024 9:50 AM EDT Narrative [facility] - 09/04/2024 1:36 PM EDT Quantitative HCG Reference Ranges Time after Conception ? MIU/ML 0.2-1 Week ? 5-50 1-2 ?? Weeks ? 50-500 2-3 ?? Weeks ?100-5,000 3-4 ?? Weeks ?500-10,000 4-5 ?? Weeks ?1,000-50,000 5-6 ?? Weeks ? 10,000-100,000 6-8 ?? Weeks ? 15,000-200,000 2-3 ?? Months ?10,000-100,000 2nd Trimester ?1,000-94,000 3rd Trimester ?2,500-90,000 Non- Females ?1-3 Tricia Riggs [facility] BLOOD ORDERABLES Final Res ult [facility] [address] [place] [address], * HCG, quantitative (09/02/2024 12:38 PM EDT) hCG Quant 3,123 mIU/mL LAB CHEMISTRY METHOD 09/02/2024 9:09 PM EDT [facility] Blood Venous blood specimen / Unknown Venipuncture / Unknown 09/02/2024 12:38 PM EDT 09/02/2024 12:38 PM EDT Narrative [facility] - 09/02/2024 9:09 PM EDT Quantitative HCG Reference Ranges Time after Conception ? MIU/ML 0.2-1 Week ? 5-50 1-2 ?? Weeks ? 50-500 2-3 ?? Weeks ?100-5,000 3-4 ?? Weeks ?500-10,000 4-5 ?? Weeks ?1,000-50,000 5-6 ?? Weeks ? 10,000-100,000 6-8 ?? Weeks ? 15,000-200,000 2-3 ?? Months ?10,000-100,000 2nd Trimester ?1,000-94,000 3rd Trimester ?2,500-90,000 Non- Females ?1-3 us Tricia Riggs CNM LAB BLOOD ORDERABLES Final Res ult Performing Organization Address City/State/[facility] Co de Phone Number [facility] [address] [place] [address], documented in this encounter Visit Diagnoses Diagnosis Bleeding in early - Primary Unspecified hemorrhage in early , unspecified as to episode of care documented in this encounter Additional Health Concerns Assessment Noted Time PHQ-9 Depression Total Score: 0 08/25/19 25 10:01 PM EDT documented as of this encounter Care Teams Rug Layer Relationship Specialty Start Date End Date Les Meier MD [address] [place] [address] PCP - General Internal Medicine 08/28/24 documented as of this encounter
[2024-09-09] VITALS (11 sets, daily range): BP systolic 105–129; BP diastolic 58–77; PULSE 99–137; RESP 14–19; TEMP 36.1–36.8; O2SAT 98–100
[2024-09-09 00:14] LABS: Alanine Aminotransferase 38 U/L (0-31); Albumin Level 3.9 g/dL (3.5-5.0); Alkaline Phosphatase 94 U/L (39-117); Anion Gap 13 (12-20); Aspartate Amino Transferase 46 U/L (5-31); Bilirubin Total 0.2 mg/dL (0.0-1.0); Blood Urea Nitrogen 18 mg/dL (9-16); Calcium 9.3 mg/dL (8.4-10.2); Carbon Dioxide 23 mmol/L (22-29); Chloride 109 mmol/L (96-108); Creatinine Clr Calc Pharmacy 123.5; Estimated Glomerular Filt Rate > 60; Glucose Random 116 mg/dL (60-115); Lipase 20 U/L (8-78); Potassium 4.5 mmol/L (3.3-5.1); Sodium 140 mmol/L (135-145); Total Protein 7.4 g/dL (6.5-8.0)
[2024-09-09 00:15] LABS: HCG Quantitative 544 mIU/mL
[2024-09-09] MEDS: Ketorolac Tromethamine 15 MG/ML VIAL IVPUSH (00:24)
[2024-09-09] MEDS: Morphine Sulfate 4 MG/ML CARTRIDGE IVPUSH (00:25)
[2024-09-09] MEDS: ondansetron HCL 4 MG/2 ML VIAL IVPUSH ×2 (00:25→05:48)
--- NOTE | 2024-09-09 01:05 | ED.GENADULT ---
HPI - General Adult General Chief complaint: Vaginal Bleeding Stated complaint: had miscarriage this am, bleeding,weak Time Seen by Provider: 09/08/24 23:52 Source: patient Limitations: no limitations History of Present Illness ED Provider: Yarely Perry PA-C HPI narrative: 29-year-old female with a last menstrual period being June 17, who is currently approximately 6 weeks , presents with a heavy vaginal bleeding. Patient states she had a verified positive home test. On August 30, she began to have light vaginal bleeding, just spotting. She followed up with her telecommunications manager the next day on August 31. They began to trend her beta hCG. On September 02 she had an ultrasound, she should have been measuring approximately 11 weeks gestation at that time, she was measuring 6 weeks gestation and no cardiac activity was visualized. Yesterday, the patient developed severe pelvic cramping and low back pain, with subsequent heavy vaginal bleeding, passing large clots. The patient called her telecommunications manager, they instructed her to seek emergent assessment. Patient denies fever. Related Data Allergies Allergy/AdvReac Type Severity Reaction Status Date / Time No Known Allergies Allergy Verified 09/08/24 23:27 [No Known Allergies*] Review of Systems Review of Systems: Yes all other systems are reviewed and are negative Constitutional: Constitutional: Denies fatigue and Denies fever(s) Cardiovascular: Cardiovascular: Denies chest pain and Denies dyspnea Respiratory: Respiratory: Denies dyspnea Gastrointestinal: Gastrointestinal: Reports abdominal pain, Denies nausea and Denies vomiting Genitourinary: Genitourinary: Reports other (Heavy vaginal bleeding) Endocrine: Endocrine: Denies fatigue PMFSH Past Medical History Attestation statement: The following information was validated with the patient. Medical History (Updated 09/09/24 @ 03:42 by Troy Lantigua MD) Obesity Social History Social History (System 07/30/24 @ 12:31 by Soniya Suarez) Smoked in Last 30 Days: No Use of substances other than those prescribed or required for medical reasons: No Advance Directives: No Do you have a plan to hurt others: No Plan Patient : No Physical Exam ED Vital Signs: Vital Signs - 24 hr 09/08/24 23:25 09/09/24 01:21 09/09/24 02:31 Temperature 98 F 98.3 F Pulse Rate 138 H 137 H 133 H Respiratory Rate 20 19 18 Blood Pressure 139/83 108/66 105/61 Pulse Oximetry 99 98 98 Oxygen Delivery Method Room Air Room Air Room Air BMI result Body Mass Index 42.7 Const Other: Alert, tearful, appears uncomfortable Orientation/consciousness: patient oriented x3 Resp Effort & Inspection: normal respiratory effort Cardio Other: Normal peripheral perfusion GI Other: Generalized tenderness across lower abdomen no guarding Other: Large clots within vaginal canal evacuated, the os is open, I can see further clot burden within the os Skin Other: Warm dry no rash Neuro General: patient oriented x3, no focal motor deficits and CN's II-XI intact bilaterally Psych Other: Cooperative Course Consultations Consultation #1: I messaged Dr. Reyez with initial information, TVUS just ordered after my pelvic exam, will formally consult him once US is completed Time: 01:22 Consultation #2: messaging Dr. Reyez to update about drop in H&H.....he responded right away, he states he is calling in OR team, that he is on way.....I did relay to him that she was physically going to US when I paged him Time: 02:34 Consultation #3: Dr. Nunes relays he is taking the patient to the OR Time: 02:39 Medications Administered Discontinued Medications Generic Name Dose Route Start Last Admin Trade Name Freq PRN Reason Stop Dose Admin Doxycycline Monohydrate 200 mg 09/09/24 03:31 09/09/24 03:51 Doxycycline Monohydrate 100 Mg Capsule PO 09/09/24 03:32 200 mg ONCE ONE Administration Sodium Chloride 1,000 mls @ 999 mls/hr 09/09/24 01:15 09/09/24 03:39 Ns IV 09/09/24 02:15 Infused .Q1H1M ERLIN Infusion Ketorolac Tromethamine 15 mg 09/09/24 00:11 09/09/24 00:24 Ketorolac Tromethamine 15 Mg/Ml Vial IVPUSH 09/09/24 00:12 15 mg ONCE ONE Administration Lorazepam 1 mg 09/09/24 01:06 09/09/24 01:21 Lorazepam 2 Mg/Ml Vial IVPUSH 09/09/24 01:07 1 mg ONCE ONE Administration Morphine Sulfate 4 mg 09/09/24 00:11 09/09/24 00:25 Morphine Sulfate 4 Mg/Ml Cartridge IVPUSH 09/09/24 00:12 4 mg ONCE ONE Administration Protocol Ondansetron HCl 4 mg 09/09/24 00:11 09/09/24 00:25 Ondansetron Hcl 4 Mg/2 Ml Vial IVPUSH 09/09/24 00:12 4 mg ONCE ONE Administration Medical Decision Making Medical Decision Making MDM Narrative: 29-year-old female with a last menstrual period being June 17, who is currently approximately 6 weeks , presents with a heavy vaginal bleeding. Patient states she had a verified positive home test. On August 30, she began to have light vaginal bleeding, just spotting. She followed up with her telecommunications manager the next day on August 31. They began to trend her beta hCG. On September 02 she had an ultrasound, she should have been measuring approximately 11 weeks gestation at that time, she was measuring 6 weeks gestation and no cardiac activity was visualized. Yesterday, the patient developed severe pelvic cramping and low back pain, with subsequent heavy vaginal bleeding, passing large clots. The patient called her telecommunications manager, they instructed her to seek emergent assessment. Patient denies fever. Problem: Actively miscarrying History: Per patient I have considered the following differential diagnoses: Endometritis, retained products of conception, incomplete Plan: Patient arrives to the emergency department at 10:57 p.m.. She was finally triaged at 11:22 p.m.. Her labs were ordered at 11:29 p.m.. They resulted at 11:39 p.m.. 0044 am just assigned myself to patient, ordered ABORh 107am ordered vaginal cx including GC/chlamydia, BV, trich.....she is tachy 130s, I am thinking this is pain and anxiety driven, medicating with morphine, toradol and ativan prior to pelvic exam I then performed pelvic exam, we checked rectal temp due to tachycardia, 98.3, adding IVF and ativan, I then paged Dr. Reyez with the information I had, my thought is that he would want to know sooner rather than later what was going on with this patient........... I felt that it was relevant to perform a complete pelvic exam, to assess the degree of bleeding, prior to ordering any diagnostic studies, so that I could provide information to the surgeon. 137am ordered TVUS , concern for retained products etc I had to reorder the imaging, it was labeled routine instead of STAT.....ordered repeat H&H, it resulted, I paged Dr. Reyez again to relay results Labs: No leukocytosis, stable H&H at 11.8 and 36, no electrolyte abnormality, beta hCG 544, vaginal swabs pending, A positive blood type Transvaginal ultrasound: Pending, patient going to OR Lab Data 09/09/24 02:09 09/08/24 23:39 Labs: Lab Results 09/08/24 09/09/24 09/09/24 Range/Units 23:39 00:44 02:09 WBC 9.1 (4.8-10.8) X10*3/uL RBC 4.34 (4.20-5.50) X10*6/uL Hgb 11.8 L 10.4 L (12.0-16.0) g/dl Hct 36.0 L 30.2 L (37.0-47.0) % MCV 82.9 (80.0-98.0) fL MCH 27.2 (27.0-33.0) pg MCHC 32.8 (31.0-35.0) g/dl RDW 12.7 (11.0-16.0) % Plt Count 356 (160-400) X10*3/uL MPV 9.3 L (9.4-12.3) fL Immature Gran % (Auto) 0.2 (0.0-0.4) % Neut % (Auto) 50.3 (45-73) % Lymph % (Auto) 41.6 H (20-40) % [place] % (Auto) 5.5 (2-11) % Eos % (Auto) 2.2 (0-4) % Baso % (Auto) 0.2 (0-2) % Lymph # (Auto) 3.8 (1.2-4.9) X10*3/uL [place] # (Auto) 0.5 (0.1-1.2) X10*3/uL Eos # (Auto) 0.2 (0.0-0.4) X10*3/uL Baso # (Auto) 0.0 (0.0-0.2) X10*3/uL Abs Immat Gran (auto) 0.02 (0.00-0.03) X10*3/uL Absolute Neuts (auto) 4.6 (2.0-8.3) x10*3/uL Absolute Nucleated RBC 0.000 (0.0-0.012) X10*3/uL Nucleated RBC % (auto) 0.0 (0.0-0.2) /100WBC Hold Blue Top SEE NOTE Sodium 140 (135-145) mmol/L Potassium 4.5 (3.3-5.1) mmol/L Chloride 109 H (96-108) mmol/L Carbon Dioxide 23 (22-29) mmol/L Anion Gap 13 (12-20) BUN 18 H (9-16) mg/dL Creatinine 0.79 (0.5-1.4) mg/dL Estim Creat Clear Calc 123.5 Estimated GFR > 60 Random Glucose 116 H (60-115) mg/dL Calcium 9.3 (8.4-10.2) mg/dL Total Bilirubin 0.2 (0.0-1.0) mg/dL AST 46 H (5-31) U/L ALT 38 H (0-31) U/L Alkaline Phosphatase 94 (39-117) U/L Total Protein 7.4 (6.5-8.0) g/dL Albumin 3.9 (3.5-5.0) g/dL Lipase 20 (8-78) U/L Beta HCG, Quant 544 mIU/mL Blood Type A Positive Discharge Plan Discharge Clinical Impression: Incomplete Patient Disposition: Xfer Other Transfer Details: went to OR for D&C
[2024-09-09] MEDS: 0.9 % Sodium Chloride 1,000 ML 999 ML IV (01:20)
[2024-09-09] MEDS: LORazepam 2 MG/ML VIAL 1 MG IVPUSH (01:21)
[2024-09-09 02:16] LABS: Hematocrit 30.2 % (37.0-47.0); Hemoglobin 10.4 g/dl (12.0-16.0)
--- NOTE | 2024-09-09 02:41 | P.CONOB_ITS ---
TELEPHONE SUPERVISOR - CN: HPI Data of Consult Consult date: 09/09/24 Primary Care Provider: Les Meier MD Consult Narrative Narrative: I was consulted on Marco Antonio Oliveira who is a 29 year old female it by LMP on 06/17/2024 making her by dates at 12 wks of gestation; around 7 weeks 2 days of gestation by an ultrasound done on 08/30, presented to the ER with a heavy vaginal bleeding associated with passage of pelvic cramping and passage of large blood clots. In the emergency room H&H at 22:39 was 11.8/36 repeated at 02:09 came down to 10.4/30.2 Blood type A positive The pt stated that HCG has been trending down over the last week On 09/02 HCG was 3123, dropped after 2 days to ~2200, HCG repeated 48 hours afterwards and it dropped down to ~900 range according to the patient, no records available Today HCG in ER is 544 GC/CT, BV panel and Trich collected results are still pending cc:: CC: OB [facility] Past Medical History Medical History (Updated 09/09/24 @ 03:42 by Troy Lantigua MD) Obesity Social History Social History (System 07/30/24 @ 12:31 by Soniya Suarez) Smoked in Last 30 Days: No Use of substances other than those prescribed or required for medical reasons: No Advance Directives: No Do you have a plan to hurt others: No Plan Patient : No Meds Allergies Allergy/AdvReac Type Severity Reaction Status Date / Time No Known Allergies Allergy Verified 09/08/24 23:27 [No Known Allergies*] TELEPHONE SUPERVISOR Physical Exam Vitals Vital signs: Temp Pulse Resp BP Pulse Ox O2 Del Method 98.3 F 133 H 18 105/61 98 Room Air 09/09/24 01:21 09/09/24 02:31 09/09/24 02:31 09/09/24 02:31 09/09/24 02:31 09/09/24 02:31 BMI result Body Mass Index 42.7 Abdomen Auscultation/Inspection/Palpation: Soft and No tenderness Female Genitalia (Pelvic) Vulva: No lesions Vagina: Nontender Cervix: Grossly normal Uterus: Normal size Adnexa/Parametria: Adnexal Tenderness: None, Adnexal Mass: None, Parametrial Tenderness: None and Parametrial Mass: None Additional Comments: Large blood clot per vagina, open cervix with active bleeding TELEPHONE SUPERVISOR - Results Labs 09/09/24 02:09 09/08/24 23:39 Labs: Short CBC 09/08/24 09/09/24 Range/Units 23:39 02:09 WBC 9.1 (4.8-10.8) X10*3/uL Hgb 11.8 L 10.4 L (12.0-16.0) g/dl Hct 36.0 L 30.2 L (37.0-47.0) % Plt Count 356 (160-400) X10*3/uL BMP 09/08/24 23:39 Sodium 140 Potassium 4.5 Chloride 109 H Carbon Dioxide 23 BUN 18 H Creatinine 0.79 Calcium 9.3 Liver Function 09/08/24 Range/Units 23:39 Total Bilirubin 0.2 (0.0-1.0) mg/dL AST 46 H (5-31) U/L ALT 38 H (0-31) U/L Alkaline Phosphatase 94 (39-117) U/L Albumin 3.9 (3.5-5.0) g/dL Assessment and Plan (1) Incomplete : Status: Acute Discussed with the patient the clinical situation with heavy vaginal bleeding passage of blood clots pointing towards spontaneous/incomplete , in addition, exaplained to the the patient with heavy vaginal bleeding, and a drop in her H&H in a short period of time there is no room for medical treatment therefore I recommend a Suction D&C; all pros, cons, risks and benefits were discussed with the patient and the patient decided to proceed with Suction D&C. so a more detailed discussion about the procedure was carried on with the patient including the technique, risks including but not limited to : bleeding, infection, uterine perforation, injury to blood vessels, bowels, ureters, bladder, possible need for blood transfusion with all its risks ( HIV, Hep b or C, anaphylaxis reactions), possible need for laparoscopy, laparotomy, or hysterectomy, possible , thromboembolic events, possibility of a negative impact on future fertility because of scar tissue development inside the uterus; alternatives of this option were discussed with the patient including but not limited to, medical termination of or doing nothing. The patient decided to go ahead with Suction D&C and signed the consent. All questions answered, the patient verbalized understanding and agreed with the plan. Doxycycline 200 mg p.o. preop given to the patient. Ultrasound notified. Type and screen sent. Instructions given the patient to schedule a 2 week postoperative appointment. This note was generated with a voice recognition program. Some errors may have been overlooked during the review of this note. Sometimes these errors may affect the content or meaning of a given sentence.
--- NOTE | 2024-09-09 03:35 | PC.NURSE ---
pelvic exam being completed by dr. molina at this time.
--- NOTE | 2024-09-09 03:41 | HO.ANESPROP2 ---
HPI - Anesthesia Eval Consult details Narrative: Vaginal bleeding, incompletite PMFSH Active Problems Active Problems: All Active Problems Incomplete (Acute) Past Medical History Medical History (Updated 09/09/24 @ 03:42 by Troy Lantigua MD) Obesity Family History Family history of problems with anesthesia: No Surgical History History of Problems with Anesthesia: No Social History Social History (System 07/30/24 @ 12:31 by Soniya Suarez) Smoked in Last 30 Days: No Use of substances other than those prescribed or required for medical reasons: No Advance Directives: No Do you have a plan to hurt others: No Plan Patient : No Meds Allergies Allergy/AdvReac Type Severity Reaction Status Date / Time No Known Allergies Allergy Verified 09/08/24 23:27 [No Known Allergies*] Exam Height,Weight and Vital Signs: Height 5 ft 3 in Weight 109.316 kg Last Vital Signs Temp 98.3 F 09/09/24 01:21 Pulse 133 H 09/09/24 02:31 Resp 18 09/09/24 02:31 BP 105/61 09/09/24 02:31 Pulse Ox 98 09/09/24 02:31 O2 Del Method Room Air 09/09/24 02:31 Pertinent Lab Results Pertinent Lab Results: Laboratory Tests 09/08/24 09/09/24 09/09/24 23:39 00:44 02:09 WBC 9.1 RBC 4.34 Hgb 11.8 L 10.4 L Hct 36.0 L 30.2 L MCV 82.9 MCH 27.2 MCHC 32.8 RDW 12.7 Plt Count 356 MPV 9.3 L Immature Gran % (Auto) 0.2 Neut % (Auto) 50.3 Lymph % (Auto) 41.6 H [place] % (Auto) 5.5 Eos % (Auto) 2.2 Baso % (Auto) 0.2 Lymph # (Auto) 3.8 [place] # (Auto) 0.5 Eos # (Auto) 0.2 Baso # (Auto) 0.0 Abs Immat Gran (auto) 0.02 Absolute Neuts (auto) 4.6 Absolute Nucleated RBC 0.000 Nucleated RBC % (auto) 0.0 Hold Blue Top SEE NOTE Sodium 140 Potassium 4.5 Chloride 109 H Carbon Dioxide 23 Anion Gap 13 BUN 18 H Creatinine 0.79 Estim Creat Clear Calc 123.5 Estimated GFR > 60 Random Glucose 116 H Calcium 9.3 Total Bilirubin 0.2 AST 46 H ALT 38 H Alkaline Phosphatase 94 Total Protein 7.4 Albumin 3.9 Lipase 20 Beta HCG, Quant 544 Blood Type A Positive Airway Mallampati Class: II TM Dist: >3cm Neck ROM: Full Loose/Missing/Broken Teeth: No Heart: RRR Lungs: CTA Assessment and Plan Assessment Anesthesia Assessment: Anesthesia Plan Discussed and Chart Reviewed Final Anesthetic Review Family History of Problems with Anesthesia: No History of Problems with Anesthesia: No NPO: Yes ASA Class: II and Emergency Final Preanesthetic Review: No Changes in Pt Med Stat, Meds/Allgs Chart Reviewed, Consent Obtained/Reviewed and Anes Risks/Benef Reviewed Patient Risk: Intermediate Procedure Risk: Low Anesthetic Plan Anesthetic Plan: GA Disposition: Standard PACU
--- NOTE | 2024-09-09 03:46 | PC.NURSE ---
report given to JOSEFINA Harris in the OR at this time.
[2024-09-09] MEDS: Doxycycline Monohydrate 100 MG CAPSULE 200 MG PO (03:51)
--- NOTE | 2024-09-09 03:52 | PC.NURSE ---
pt medicated per provider order. pt being transported to the OR w/ OR staff. per ED provider, type and screen is not needed prior to being transported to surgery. previous delay in obtaining type and screen d/t pt being in ultrasound and then having bedside pelvic exam performed by dr. molina.
--- NOTE | 2024-09-09 04:32 | P.OP_ITS ---
Operative Note Operative Note Date of Service: 09/09/24 Narrative: Preop diagnosis: Incomplete AB Operation: suction D and C Postop diagnosis: The same EBL: Minimal Anesthesia: MAC Special Education Paraprofessional: None Pathology: Products of conception Procedure: The patient was put in a dorsal distal mid position was scrubbed and draped in the usual sterile fashion. A sterile speculum was inserted inside the patient's vagina the anterior lip of the cervix was grasped with single-tooth tenaculum the cervix was dilated up to 7 mm. Under ultrasonographic guidance flexible 8. Suction tip was introduced inside the patient ran cavity till the fundus was hit then turning the suction 360 degrees around products of conception was sucked out toward the uterine cavity. The suction tip was taken out of the patient uterine cavity sharp curettings was followed in 4 quadrants of the uterus till a gritty feeling was felt. The suction tip was reintroduced under ultrasonographic guidance and intrauterine blood was sucked. The suction tip was taken out. Single-tooth tenaculum was removed hemostasis assured using pressure. The patient tolerated the procedure well and was transferred to the PACU in a stable condition.
--- NOTE | 2024-09-09 04:32 | P.BOP_ITS ---
Brief Operative Note Date of Service: 09/09/24 Pre-op diagnosis: Incomplete Post-op diagnosis: same Procedure: Suction D&C Surgeon: Neftali Reyez MD Anesthesia: MAC Was an Cotton Presser used for this Procedure?: No Estimated blood loss (mL): 100 Pathology: other (Products of conception) Condition: stable Disposition: PACU
[2024-09-09] MEDS: Acetaminophen 1,000 MG/100 ML PIGGYBACK 400 MG IV (05:04)
[2024-09-09] MEDS: droPERidol 5 MG/2 ML VIAL 0.625 MG IVPUSH (05:34)
[2024-09-09 06:41] LABS: CT PCR NOT DETECTED (Not Detect.); NG PCR NOT DETECTED (Not Detect.)
[2024-09-09 08:56] LABS: Bacterial Vaginosis PCR NEGATIVE (Negative); Candida Group PCR NOT DETECTED (Not Detect); Candida glab krusei PCR NOT DETECTED (Not Detect); Trichomonas vaginalis PCR NOT DETECTED (Not Detect)
== END 2024-09-09 06:44 | disposition home or self-care (01) ==
LOC: HO.ED 09-09 02:56 → HO.SSS 09-09 03:05
PROVIDERS: Physician Assistant Medical; Emergency Provider Emergency Medicine; PCP Internal Medicine; Visit Provider Obstetrics & Gynecology
PROC: (CPT 59812; principal; 2024-09-09 03:40)
DX: O03.1 Delayed or excessive hemorrhage following incomplete spontaneous abortion (principal)
CPT/HCPCS: 59812; 36415; 76801; 76815; 76817; 76998; 80053; 81515; 83690; 84702; 85014; 85018; 85025; 86850; 86900; 86901; 86923; 87491; 87591; 88305; 96361; 96374; 96375; 99285; J0131; J1790; J1885; J2003; J2060; J2270; J2405; J2590; J2704; J3010

== ENCOUNTER → 2024-09-09 01:54 | Outpatient (BNV) | payer OTHER, SELFPAY | PROVIDERS: Emergency Provider Emergency Medicine; PCP Internal Medicine; Visit Provider Radiology Diagnostic Radiology | DX: O02.1 Missed abortion (principal) | CPT/HCPCS: 76801; 76817; 76998 ==

== ENCOUNTER → 2024-09-09 02:56 | Outpatient (BNV) | payer OTHER, SELFPAY | PROVIDERS: Emergency Provider Emergency Medicine; PCP Internal Medicine; Visit Provider Obstetrics & Gynecology | DX: O03.4 Incomplete spontaneous abortion without complication (principal) | CPT/HCPCS: 59812; 99283 ==

== ENCOUNTER 2024-09-28 09:37 | Outpatient (REF) | payer OTHER, SELFPAY ==
[2024-09-28 10:26] LABS: HCG Quantitative < 2 mIU/mL
--- OUTSIDE RECORDS SUMMARY | 2024-09-28 10:44 | XMS_ITS | Encounter Summary ---
Author Organization [facility] Address [address] [place] [address] Care Team Providers Care Fur Cutting Machine Operator Name Role Phone Les Meier MD Primary Care Provider Reason for Visit * Reason Comments Immunizations Encounter Details Date Type Department Care Team (Latest Contact Info) Description 09/23/2024 2:00 PM EDT Clinical Support Adult [address] [phone] Need for varicella vaccine Social History Tobacco Use Types Packs/Day Years [...] for your loved ones. For example, child care counselor or elderly care for an older adult? [...] as of this encounter Progress Notes * Yarely Montalvo MA - 09/23/2024 2:00 PM EDT Urine HCG: Negative - Temp: 97.3 Pt advised to sit in the lobby for 20 min in the case of a reaction. Pt also advised to make appt in 1 month for 2nd vaccine. Lab Results Component Value Date POCUHCG Negative 09/23/2024 documented in this encounter Plan of Treatment Upcoming Encounters Date Type Department Care Team (Late st Contact Info) Description 10/14/2024 3:45 PM EDT Clinical Support [address] [phone] 10/21/2024 4:15 PM EDT Clinical Support [address] [phone] 01/28/2025 11:30 AM EDT Office Visit [address] [phone] Les Meier MD [address] [place] [address] documented as of this encounter Procedures Procedure Name Priority Date/Time Associated Diagnosis Comments POC , URINE DIAGNOSTIC Routine 09/23/2024 1:51 PM EDT Need for varicella vaccine documented in this encounter Results * POC , urine manually resulted (09/23/2024 1:51 PM EDT) HCG, Ur POC Negative Negative POC hCG Int QC Pass? Yes Yes Urine Urine specimen obtained by clean catch procedure / Unknown 09/23/2024 1:51 PM EDT Les Meier MD POINT OF CARE TEST ENT ER/EDIT ORDERABLES Final Result documented in this encounter Visit Diagnoses Diagnosis Need for varicella vaccine Need for prophylactic vaccination and inoculation against varicella documented in this encounter Orders Immunization/Injection Count Last Ordered Date First Ordered Date VARICELLA LIVE (VARIVAX) 12MO AND OLDER 1 0 09/23/2024 documented in this encounter Additional Health Concerns Assessment Noted Time PHQ-9 Depression Total Score: 0 08/25/19 25 10:01 PM EDT documented as of this encounter Care Teams Fur Cutting Machine Operator Relationship Specialty Start Date End Date Les Meier MD [address] [place] [address] PCP - General Internal Medicine 08/28/24 documented as of this encounter
--- OUTSIDE RECORDS SUMMARY | 2024-09-28 10:44 | XMS_ITS | Encounter Summary ---
Author Organization [facility] [place] [address] Care Team Providers Care Pediatric Dental Assistant Name Role Phone Les Meier MD Primary Care Provider Reason for Visit * Reason Onset Date Comments Appointment 09/10/2024 Encounter Details Date Type Department Care Team ([facility] st Contact Info) Description 09/10/2024 Telephone Obstetrics and Gynecology [address] [phone] Mary Gavin MD [address] [place], [place] Appointment Social History Tobacco Use Types Packs/Day Years [...] care for your loved ones. For example, childbirth educator or elderly care for an older adult? [...] as of this encounter Progress Notes * Jesusitaneha Guerrero - 09/10/2024 12:01 PM EDT Chief Complaint/problem: patient went to [facility] er on Saturday - she had D&C done on Saturday. She is calling in to see if she still needs to have her HCG levels checked and if she should keep her appointment on Saturday with Dr Gavin. Please advise How long has the patient had this problem? - Pt???s REHABILITATION TEAM LEAD provider: Mary Gavin MD Last menstrual period (LMP) or EDC (due date): - documented in this encounter Plan of Treatment Upcoming Encounters Date Type Department Care Team (Late st Contact Info) Description 10/14/2024 3:45 PM EDT Clinical Support [address] [phone] 10/21/2024 4:15 PM EDT Clinical Support [address] [phone] 01/28/2025 11:30 AM EDT Office Visit [address] [phone] Les Meier MD [address] [place] [address] documented as of this encounter Visit Diagnoses Not on filedocumented in this encounter Additional Health Concerns Assessment Noted Time PHQ-9 Depression Total Score: 0 08/25/19 25 10:01 PM EDT documented as of this encounter Care Teams Pediatric Dental Assistant Relationship Specialty Start Date End Date Les Meier MD [address] [place] [address] PCP - General Internal Medicine 08/28/24 documented as of this encounter
--- OUTSIDE RECORDS SUMMARY | 2024-09-28 10:44 | XMS_ITS | Clinical Summary ---
Author Organization [facility] [address] [place] [address] [place] [phone] Phone Care Team Providers Care Technician Chemical Cleaning Name Role Phone Les Meier MD Primary Care Provider Allergies No known active allergies Medications metroNIDAZOLE (METROGEL) 0.75 % (37.5mg/5 gram) vaginal gel Insert 1 Applicatorful into the vagina at bedtime. for 5 nights 4 Active PNV,calcium 12-gcda-igmwi acid (M- Plus) 27 mg iron- 1 [...] Active Problems Problem Noted Date Diagnosed Date Miscarriage 09/14/2024 Assessment & Plan (09/14/2024 10:49 AM EDT): Gave emotional support and referred to [facility]. She will have repeat serum quant today and then in one week if not negative. She agreed. She plans to use condoms for contraception. 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 Maternal varicella, non-immune 09/01/2024 Assessment & Plan (09/14/2024 10:48 AM EDT): I recommended she get her Varicella vaccine from her PCP between pregnancies. She agreed. Marijuana use 09/01/2024 Overview (09/01/2024): + at intake History of section 08/31/2024 Estimated Date of Delivery Comme nts Yes 03/24/2025 Based on last me nstrual period of 06/17/2024 Resolved Problems Problem Noted Date Diagnosed Date Resolved Date in multigravida 08/31/2024 Overview (08/31/2024): 1. [facility] site: [facility]: [address] [place] [phone] ([phone]) 2. Delivery site: [facility] 3. [facility] Mommas: 4. Dating criteria: LMP [...] - 9. Hospital Course: Obesity in 08/31/2024 025 Overview (08/31/2024): BMI 42 HgbA1C and 1 [...] BMI of 50 by 28wks transfer to [facility] DVT prophylaxis- Lovenox if CS and BMI >35 COVID-19 virus detected 09/24/2019 04/0 06/2024 Overview [...] Encounters Date Type Department Care Team Description 09/23/2024 2:00 PM EDT Clinical Support Adult [address] [phone] Need for varicella vaccine 09/14/2024 10:30 AM EDT Office Visit Obstetrics and Gynecology [address] [phone] Mary Gavin MD Miscarriage (Primary Dx); test negative; Maternal varicella, non-immune; 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 09/14/2024 Telephone Adult Medicine [address] [phone] Les Meier MD 09/14/2024 Telephone Obstetrics and Gynecology [address] [phone] Mari Sinha RN 09/11/2024 Telephone Adult Medicine [address] [phone] Les Meier MD Hospital Follow-up 09/10/2024 Telephone Obstetrics and Gynecology [address] [phone] Mary Gavin MD Appointment 09/09/2024 Telephone Obstetrics and Gynecology [address] [place] [phone] Mari Sinha RN 09/08/2024 Telephone Obstetrics & Gynecology - [address] [phone] Elmira Larry CNM 09/04/2024 Telephone Obstetrics and Gynecology - [address] [phone] Keturah Ascencio CNM Letter for School/Work 09/02/2024 11:15 AM EDT Routine Obstetrics and Gynecology - [address] [phone] Keturah Ascencio CNM Bleeding in early (Primary Dx) 09/02/2024 10:56 AM EDT - 09/02/2024 11:59 PM EDT Hospital Encounter Radiology Department - [address] [phone] Hemorrhage in early Discharge Disposition: Home or Self Care 09/01/2024 Telephone Obstetrics and Gynecology - [address] [phone] Keturah Ascencio CNM Problem 08/31/2024 10:00 AM EDT Clinical Support Obstetrics and Gynecology - [address] [phone] care, subsequent in first trimester (Primary Dx); Obesity in ; in multigravida; History of section 07/27/2024 9:00 AM EST Clinical Support Obstetrics and Gynecology - [address] [phone] Irregular menstrual cycle (Primary Dx) from Last [...] pertussis (Boostrix; Adacel) 7yo and older 12/16/2019,04/05/2015 Varicella live (Varivax) 12mo and older 09/24/19 25 Surgical History Surgery Date Site/Laterality Comments TONSILLECTOMY ADENOIDECTOMY, BILATERAL MYRINGOTOMY AND TUBES PROCEDURE: OK TONSILLECTOMY & ADENOIDECTOMY <AGE 12 CHOLECYSTECTOMY PROCEDURE: OK CHOLECYSTECTOMY SECTION 03/08/2020 PROCEDURE: HISTORICAL DELIVERY Medical [...] for your loved ones. For example, director child abuse therapy or elderly care for an older adult? [...] Josie A1 A5 Name Clin 2012 IAB Surgic al Praveen 2019 Term 41w 1d 3402 g (120 oz) F CS-LTr anv Spinal N Livin g Maria Esther deni Complications:Failure to Pro morales in First Stage Current Summary Episode Dates Number of Fetuses Estimated Date of Delivery 08/31/2024 - Present (09/28/2024) 03/24/2025 (set by Mari Sinha RN on 08/31/2024 based on Last Menstrual Period on 06/17/2024) Dating Summary Based On KHADIJAH GA Diff Last Menstrual Period on 06/17/2024 03/24/2025 Working Overview and Plan Delivery Plans Post-Delivery Plans Planned delivery method: Feedin g intentions:Exclusive Planned delivery location:[facility] Circumcis ion requested:Provider Performed Acceptable blood products:All Vitals Pregravid Weight Height TWG (As of 09/28/2024) Pregrav id BMI 109 kg (240 lb) 1.6 m (63 ) 2.722 kg (6 lb) 42.52 Notes Progress Notes - Routine Pre - 09/02/2024 - GA:11w0d 09/02/2024 - 11w0d [...] old female at 10w5d. This is a [place] The patient feels happy about the . [...] to the above questions, is this for judaism reasons? No Do you know what your [...] cervix or dilation and curettage, etc? Yes-in 2013-d &c Have you had any other surgical [...] Oliveira has also been informed of the blow up operator provider recommendation for first trimester nuchal lucency [...] Genetic Testing has been reviewed and the [employer] information sheet has been provided to the [...] For Horizon Carrier Screening, if patient has [employer], [facility] or [employer] [place] insurances: Not Applicable Electronically signed by: Mari Sinha RN 08/31/24 10:23 AM EDT Last Filed Vital Signs Vital Sign Reading Time Taken Comments Blood Pressure 110/74 09/14/2024 10:32 AM EDT Pulse 78 09/14/2024 10:32 AM EDT Temperature - - Respiratory Rate 16 09/14/2024 10:32 AM EDT Oxygen Saturation - - Inhaled Oxygen Concentration - - Weight 112 kg (246 lb 3.2 oz) 09/14/2024 10:32 A M EDT Height 160 cm (5' 3 ) 09/14/2024 10:32 AM EDT Body Mass Index 43.61 09/14/2024 10:32 AM EDT Plan of Treatment Upcoming Encounters Date Type Department Care Team (Late st Contact Info) Description 10/14/2024 3:45 PM EDT Clinical Support [address] [phone] 10/21/2024 4:15 PM EDT Clinical Support [address] [phone] 01/28/2025 11:30 AM EDT Office Visit [address] [phone] Les Meier MD [address] [place], [place] Health Maintenance Due Date Last Done [...] 1:51 PM EDT Need for varicella vaccine HCG, QUANTITATIVE Routine 09/23/2024 1:2 7 PM EDT Bleeding in early HCG, QUANTITATIVE Routine 09/14/2024 11: 03 AM EDT Bleeding in early POC , URINE DIAGNOSTIC Routine 09/14/2024 10:44 AM EDT test negative EXTERNAL ULTRASOUND REPORT 09/09/2024 EXTERNAL ULTRASOUND REPORT 09/09/2024 EXTERNAL ULTRASOUND REPORT 09/09/2024 EXTERNAL ULTRASOUND REPORT 09/09/2024 HCG, QUANTITATIVE Routine 09/04/2024 9:5 0 AM [...] Recently Relevant to Health Maintenance Results * POC , urine manually resulted (09/23/2024 1:51 PM EDT) Only the most recent of3 resultswithin the time period is included. HCG, Ur POC Negative Negative POC hCG Int QC Pass? Yes Yes Urine Urine specimen obtained by clean catch procedure / Unknown 09/23/2024 1:51 PM EDT us Les Meier MD POINT OF CARE TEST ENT ER/EDIT ORDERABLES Final Result * HCG, quantitative (09/23/2024 1:27 PM EDT) Only the most recent of4 resultswithin the time period is included. Pathologist [facility] hCG Quant 2 mIU/mL LAB CHEMISTRY METHOD 09/23/2024 5:44 PM EDT [facility] Blood Venous blood specimen / Unknown Venipuncture / Unknown 09/23/2024 1:27 PM EDT 09/23/2024 1:27 PM EDT Narrative [facility] - 09/23/2024 5:44 PM EDT Quantitative HCG Reference Ranges Time after Conception ? MIU/ML 0.2-1 Week ? 5-50 1-2 ?? Weeks ? 50-500 2-3 ?? Weeks ?100-5,000 3-4 ?? Weeks ?500-10,000 4-5 ?? Weeks ?1,000-50,000 5-6 ?? Weeks ? 10,000-100,000 6-8 ?? Weeks ? 15,000-200,000 2-3 ?? Months ?10,000-100,000 2nd Trimester ?1,000-94,000 3rd Trimester ?2,500-90,000 Non- Females ?1-3 us Keturah Ascencio CNM LAB BLOOD ORDERABLES Final Res ult [facility] [address] [place] [address], * External Ultrasound Report (09/09/2024) Only the most recent of4 resultswithin the time period is included. Anatomical Region Laterality Modality Ultrasound us Provider [facility] IMG US PROCEDURES Final Result * US OB Less 14 Wks Single [...] Ascencio on 09/02/2024 at 11:30 AM via Shipu text -------- FINAL REPORT -------- Dictated By: Dimitrios Anne Dictated Date: 09/02/2024 11:46 ET Assigned Physician: Dimitrios Anne Reviewed and Electronically Signed By: Dimitrios Anne Signed Date: 09/02/2024 11:49 ET Workstation ID: [id number] Transcribed By: Self Edit Transcribed Date: 09/02/2024 [...] Single intrauterine with estimated gestational age 6weeks [id number] without cardiac activity. Findings are concerning for demise.Close clinical follow-up, beta hCg and serial ultrasound as clinicallyindicated. Findings were sent to Keturah Ascencio on 09/02/2024 at 11:30 AM via Acucelat -------- FINAL REPORT -------- Dictated By: Dimitrios Anne Dictated Date: 09/02/2024 11:46 ET Assigned Physician: Dimitrios Anne Reviewed and Electronically Signed By: Dimitrios Anne Signed Date: 09/02/2024 11:49 ET Workstation ID: [id number] Transcribed By: Self Edit Transcribed Date: 09/02/2024 11:46 ET Mary Gavin MD IMG OB US PROCEDURES Final Result * Hepatitis C antibody (08/31/2024 12:36 PM EDT) [facility] Hepatitis C Antibody Negative Negative LAB CHEMISTRY METHOD 08/31/2024 3:37 PM EDT [facility] Blood Venous blood specimen / Unknown Venipuncture / Unknown 08/31/2024 12:36 PM EDT 08/31/2024 12:43 PM EDT Mary Gvain MD LAB BLOOD ORDERABLES Final Result [facility] [address] [place] [address], [place] [phone] * HIV 1,2 antibody, p24 antigen with reflex to differentiation (08/31/2024 12:36 PM EDT) [facility] HIV Combo AB/AG Negative Negative LAB CHEMISTRY METHOD 08/31/2024 3:38 PM EDT [facility] Blood Venous blood specimen / Unknown Venipuncture / Unknown 08/31/2024 12:36 PM EDT 08/31/2024 12:43 PM EDT Narrative [facility] - 08/31/2024 3:38 PM EDT This [...] BLOOD ORDERABLES Final Result Performing Organization Address [facility] de Phone Number [facility] [address] [place] [address], * Hepatitis B surface antigen with reflex to confirmation (08/31/2024 12:36 PM EDT) Hepatitis B Surface Ag Negative Negative LAB CHEMISTRY METHOD 08/31/2024 3:09 PM EDT [facility] Blood Venous blood specimen / Unknown Venipuncture / Unknown 08/31/2024 12:36 PM EDT 08/31/2024 12:43 PM EDT Narrative [facility] - 08/31/2024 3:09 PM EDT Over the counter supplements containing high doses of biotin may interfere with this assay. ??If interference is suspected, patients shoud be retested after refraining from biotin supplements for 72 hours. us Mary Gavin MD LAB BLOOD ORDERABLES Final Result Performing Organization Address [facility] de Phone Number [facility] [address] [place] [address], * Treponema pallidum antibody with reflex to RPR and particle agglutination (08/31/2024 12:36 PM EDT) T. Pallidum Antibodies Negative Negative LAB CHEMISTRY METHOD 08/31/2024 3:09 PM EDT [facility] Blood Venous blood specimen / Unknown Venipuncture / Unknown 08/31/2024 12:36 PM EDT 08/31/2024 12:43 PM EDT us Mary Gavin MD LAB BLOOD ORDERABLES Final Result Performing Organization Address City/[facility]/ZIP Co de Phone Number [facility] [address] [place] [address], * Venipuncture charge (08/31/2024 12:36 PM EDT) [facility] Extra Tube Hold for add-ons. 08/31/2024 2:01 PM EDT [facility] ([facility]) Comment:Auto resulted. Blood Venous blood specimen / Unknown Venipuncture / Unknown 08/31/2024 12:36 PM EDT 08/31/2024 12:43 PM EDT Mary Gavin MD LAB BLOOD ORDERABLES Final Result Performing Organization Address [facility]/ZIP Co de Phone Number [facility] [place], * GTT gestational 1 hour (08/31/2024 12:36 PM EDT) [facility] Glucose, 1 HR Gestational 126 See Comment mg/dL LAB CHEMISTRY METHOD 08/31/2024 2:21 PM EDT [facility] Blood Venous blood specimen / Unknown Venipuncture / Unknown 08/31/2024 12:36 PM EDT 08/31/2024 12:43 PM EDT Narrative [facility] - 08/31/2024 2:21 PM EDT Gestational Diabetes Challenge Reference Range: 1 hour Glucose <140 mg/dL Mary Gavin MD LAB BLOOD ORDERABLES Final Result Performing Organization Address [facility]/ZIP Co de Phone Number [facility] [address] [place] [address], [place] [phone] * CBC auto differential (08/31/2024 12:36 PM EDT) [facility] WBC 9.2 4.8 - 10.8 K/mcL LAB HEMETOLOGY METHOD 08/31/2024 2:[facility] RBC 4.70 3.80 - 4.80 M/mcL LAB HEMETOLOGY METHOD 08/31/2024 2:08 PM [facility] Hemoglobin 12.9 11.5 - 16.0 g/dL LAB HEMETOLOGY METHOD 08/31/2024 2:08 PM [facility] Hematocrit 39.7 35.0 - 47.0 % LAB HEMETOLOGY METHOD 08/31/2024 2:08 PM [facility] MCV 85.2 79.0 - 98.0 FL LAB HEMETOLOGY METHOD 08/31/2024 2:08 PM [facility] MCH 27.7 27.0 - 32.0 pcg LAB HEMETOLOGY METHOD 08/31/2024 2:08 PM [facility] MCHC 32.5 32.0 - 37.0 g/dL LAB HEMETOLOGY METHOD 08/31/2024 2:08 PM [facility] RDW 12.9 11.0 - 15.0 % LAB HEMETOLOGY METHOD 08/31/2024 2:08 PM [facility] Platelets 340 130 - 400 K/mcL LAB HEMETOLOGY METHOD 08/31/2024 2:08 PM [facility] MPV 9.7 7.0 - 11.0 FL LAB HEMETOLOGY METHOD 08/31/2024 2:08 PM [facility] NRBC 0.0 <1.0 % LAB HEMETOLOGY METHOD 08/31/2024 2:08 PM [facility] NRBC Absolute 0.00 <0.10 K/mcL LAB HEMETOLOGY METHOD 08/31/2024 2:08 PM [facility] Neutrophils Relative 62.4 % LAB HEMETOLOGY METHOD 08/31/2024 2:08 PM [facility] Lymphocytes Relative 29.7 % LAB HEMETOLOGY METHOD 08/31/2024 2:08 PM EDT [facility] Monocytes Relative 4.7 % LAB HEMETOLOGY METHOD 08/31/2024 2:08 PM EDT [facility] Eosinophils Relative 2.7 % LAB HEMETOLOGY METHOD 08/31/2024 2:08 PM EDT [facility] Basophils Relative 0.2 % LAB HEMETOLOGY METHOD 08/31/2024 2:08 PM EDT [facility] Immature Granulocytes Relative 0.3 % LAB HEMETOLOGY METHOD 08/31/2024 2:08 PM EDT [facility] Neutrophils Absolute 5.71 1.50 - 7.00 K/mcL LAB HEMETOLOGY METHOD 08/31/2024 2:08 PM [facility] Lymphocytes Absolute 2.72 1.00 - 5.00 K/mcL LAB HEMETOLOGY METHOD 08/31/2024 2:08 PM EDT [facility] Monocytes Absolute 0.43 0.20 - 1.00 K/mcL LAB HEMETOLOGY METHOD 08/31/2024 2:08 PM EDT [facility] Eosinophils Absolute 0.25 0.00 - 0.50 K/mcL LAB HEMETOLOGY METHOD 08/31/2024 2:08 PM EDT [facility] Basophils Absolute 0.02 0.00 - 0.20 K/mcL LAB HEMETOLOGY METHOD 08/31/2024 2:08 PM EDT [facility] Immature Granulocytes Absolute 0.03 0.00 - 0.03 K/mcL LAB HEMETOLOGY METHOD 08/31/2024 2:08 PM [facility] Blood Venous blood specimen / Unknown Venipuncture / Unknown 08/31/2024 12:36 PM EDT 08/31/2024 12:43 PM EDT us Mary Gavin MD LAB BLOOD ORDERABLES Final Result Performing Organization Address City/[facility]/ZIP Co de Phone Number [facility] [address] [place] [address], [place] [phone] * Rubella antibody IgG (08/31/2024 12:36 PM EDT) [facility] Rubella IgG Quant 46.0 >=10.0 I Unit/mL LAB CHEMISTRY METHOD 08/31/2024 4:48 PM EDT [facility] Rubella IgG Antibody Interp Positive Positive LAB CHEMISTRY METHOD 08/31/2024 4:48 PM EDT [facility] Blood Venous blood specimen / Unknown Venipuncture / Unknown 08/31/2024 12:36 PM EDT 08/31/2024 12:43 PM EDT us Mary Gavin MD LAB BLOOD ORDERABLES Final Result Performing Organization Address [facility]/ZIP Co de Phone Number [facility] [address] [place] [address], [place] [phone] * Type and screen (08/31/2024 12:36 PM EDT) [facility] ABO Group A 08/31/2024 2:58 PM EDT [facility] Rh Type Positive 08/31/2024 2:58 PM EDT [facility] Antibody Screen Negative 08/31/2024 2:58 PM EDT [facility] Blood Venous blood specimen / Unknown Venipuncture / Unknown 08/31/2024 12:36 PM EDT 08/31/2024 12:43 PM EDT us Mary Gavin MD LAB BLOOD BANK TEST ORDERAB LES Final Result Performing Organization Address City/[facility]/ZIP Co de Phone Number [facility] [address] [place] [address], [place] [phone] * (ABNORMAL) Varicella zoster antibody IgG (08/31/2024 12:36 PM EDT) [facility] Varicella IgG Negative( A) Positive LAB CHEMISTRY METHOD 09/01/2024 8:45 AM EDT [facility] Varicella Zoster IgG 0.23(L) >=1.00 S/CO LAB CHEMISTRY METHOD 09/01/2024 8:45 AM EDT [facility] Blood Venous blood specimen / Unknown Venipuncture / Unknown 08/31/2024 12:36 PM EDT 08/31/2024 12:43 PM EDT Narrative [facility] - 09/01/2024 8:45 AM EDT Interpretation >= 1.00 S/CO is considered to be consistent with Immunity us Mary Gavin MD LAB BLOOD ORDERABLES Final Result Performing Organization Address [facility] de Phone Number [facility] [address] [place] [address], [place] [phone] * Hemoglobin A1c (08/31/2024 12:36 PM EDT) [facility] Hemoglobin A1C 5.5 <6.5 % LAB CHEMISTRY METHOD 08/31/2024 9:27 PM EDT [facility] Mean Bld Glu Estim. 111 mg/dL LAB CHEMISTRY METHOD 08/31/2024 9:27 PM EDT [facility] Blood Venous blood specimen / Unknown Venipuncture / Unknown 08/31/2024 12:36 PM EDT 08/31/2024 12:43 PM EDT us Mary Gavin MD LAB BLOOD ORDERABLES Final Result Performing Organization Address [facility] de Phone Number [facility] [address] [place] [address], [place] [phone] * (ABNORMAL) Drug abuse screen expanded with reflex confirmation, urine (08/31/2024 11:36 AM EDT) Amphetamine Screen, Ur Negative Negative LAB CHEMISTRY METHOD 5 4:29 PM [facility] Comment:Certain OTC medicati ons containing ephedrine, phenylephrine, pseudoephedrine and phenylpropanolamine can cause false positive results. Barbiturate Screen, Ur Negative Negative LAB CHEMISTRY METHOD 5 4:[facility] Benzodiazepine Screen, Ur Negative Negative LAB CHEMISTRY METHOD 5 4:29 PM [facility] Cocaine Screen, Ur Negative Negative LAB CHEMISTRY METHOD 5 4:29 PM [facility] Opiate Screen, Ur Negative Negative LAB CHEMISTRY METHOD 5 4:29 PM [facility] Cannabinoid (THC) Screen, Ur Positive(A ) Negative LAB CHEMISTRY METHOD 5 4:29 PM [facility] Comment:Specimens from patie nts taking pantoprazole sodium (Protonix) have been shown to produce false positive results. Fentanyl, Ur Negative Negative LAB CHEMISTRY METHOD 5 4:29 PM [facility] Oxycodone Screen, Ur Negative Negative LAB CHEMISTRY METHOD 5 4:29 PM [facility] Urine Urine specimen obtained by clean catch procedure / Unknown Non-blood Collection / Unknown 08/31/2024 11:36 AM EDT 08/31/2024 11:36 AM EDT Narrative [facility] - 08/31/2024 4:29 PM EDT Assay cutoffs: Amphetamines ? 1000 ng/mL Barbiturates ?200 ng/mL Benzodiazepines ?? 200 ng/mL Cocaine ? 300 ng/mL Fentanyl ?1 ng/mL Opiates ? 300 ng/mL Oxycodone ? 100 ng/mL THC ?50 ng/mL Semi-quantitative assay for screening purposes only. Unconfirmed screening result should not be used for non-medical purposes. *POSITIVE RESULTS ARE AUTOMATICALLY SENT FOR ALTERNATE METHOD CONFIRMATION* Mary Gavin MD LAB URINE ORDERABLES Final Result [facility] [address] [place] [address], * THC, urine, confirmation (08/31/2024 11:36 AM EDT) [facility] Tetrahydrocannabinoid (THC) 44 ng/mL 09/04/2024 12:10 AM [...] more. ? Confirmation (GC/MS) Decision Limit ?THC (46-mgx-5-ulzgglj-3-yspcczmhjsmymglldaqj) ? 3 ng/mL ??Adulterant Decision Limit: ? General Oxidants ? 200 ug/mL ?The adulterant assay tests for General Oxidants, ??including Chromates and Nitrites. ??Adulterants are ??substances either ingested or added directly to a ??urine specimen to prevent the detection of drug use. If applicable, any drug confirmation testing reported here was developed and the performance characteristics determined by [facility]. This confirmation testing has not been cleared or approved by the FDA. The laboratory is regulated under CLIA as qualified to perform high-complexity testing. This test is used for patient testing purposes. It should not be regarded as investigational or for research. Test performed at [facility], [address] , [place], [place] ??[address] ? [phone] Angélica Urban MD, PhD - Life Claims Examiner Urine Urine specimen obtained by clean catch procedure / Unknown Non-blood Collection / Unknown 08/31/2024 11:36 AM EDT 08/31/2024 4:29 PM EDT us Mary Gavin MD LAB URINE ORDERABLES Final Result [facility] [address] [place] [address] * Culture urine (08/31/2024 11:36 AM EDT) Culture, Urine No growth 09/01/2024 9:19 AM EDT [facility] Urine Urine specimen obtained by clean catch procedure / Unknown Non-blood Collection / Unknown 08/31/2024 11:36 AM EDT 08/31/2024 11:36 AM EDT us Mary Gavin MD LAB MICROBIOLOGY - GENERAL ORDERABLES Final Result Performing Organization Address City/[facility]/ZIP Co de Phone Number [facility] [address] [place] [address], [place] [phone] * Pap smear (10/20/2021) 10/20/2021 Narrative HISTORICAL TESTING LAB RESULTING AGENCY - 11/03/2021 3:20 PM EDT [id number] THINPREP PAP, IMAGED: NEGATIVE FOR SQUAMOUS INTRAEPITHELIAL LESION AND MALIGNANCY. SHIFT IN ADAN, SUGGESTIVE OF BACTERIAL VAGINOSIS. NOTE: THE PAP TEST IS A SCREENING TEST WITH AN INHERENT FALSE NEGATIVE RATE. AUTOMATED PRESCREENING OF ALL LIQUID BASED SPECIMENS IS PERFORMED BY THE THINPREP IMAGING SYSTEM UNLESS OTHERWISE STATED. NIKKI A. STRUTHERS , CT(ASCP) (CASE ELECTRONICALLY SIGNED 11 03 2021) ADEQUACY: SATISFACTORY ENDOCERVICAL/TRANSFORMATION ZONE COMPONENT PRESENT. SOURCE: THINPREP PAP HPV IF ASCUS, CERVICAL, IMAGED CLINICAL INFORMATION: HPV IF DIAGNOSIS OF ASCUS. HORMONES, PAP HX NEGATIVE, [Z01.419] Keturah Ascencio CNM LAB CYTOLOGY ORDERABLES Final Result HISTORICAL TESTING LAB RESULTING AGENCY * Lipid panel (04/29/2020) LDL/HDL Ratio 4 0 - 4 Triglycerides 104 0 - 150 mg/dL Cholesterol 152 0 - 200 mg/dL HDL 40 >=40 mg/dL LDL Cholesterol 92 0 - 100 mg/dL Blood Venous blood specimen / Unknown Historical Provider LAB BLOOD ORDERABLES Monie l Result from Last 3 Months or Most Recently Relevant to Health Maintenance Insurance [facility] [place] [address] Care Teams Technician Chemical Cleaning Relationship Specialty Start Date End Date Les Meier MD [address] [place] [address] PCP - General Internal Medicine 08/28/24
== END 2024-09-28 09:38 | disposition home or self-care (01) ==
LOC: HO.LAB 09:37
PROVIDERS: PCP Internal Medicine; Visit Provider Obstetrics & Gynecology
DX: O03.4 Incomplete spontaneous abortion without complication (principal)
CPT/HCPCS: 36415; 84702; 99212

== ENCOUNTER 2024-09-28 11:01 | Outpatient (AMB) | payer OTHER, SELFPAY ==
--- NOTE | 2024-09-28 11:04 | A.OFFVIS_ITS ---
Vital Signs 09/28/24 11:05 Height 5 ft 3 in Weight 244 lb BMI 43.2 BP 118/72 Intake Visit Reasons: Hcg follow up Technical Sales Support Specialist Required: No Information Interpreted: non-clinical & clinical Accompanied by: Self / Same As Patient Allergies No Known Allergies [No Known Allergies*] Allergy (Verified 09/28/24 11:05) HPI Comments Details: Presenting 3 weeks post suction D&C for incomplete , doing well with no complaints, minimal vaginal bleeding no pelvic cramping or any other concerns. Pathology showed the following: Products of conception (curettage): -Immature chorionic villi with hydropic changes, sclerosis and necrosis. -Decidua with placental site trophoblastic reaction, fibrin, focal necrosis and inflammation. -Membranes, and fragments of necrotic and hemorrhagic tissue and blood clot. -Benign endometrium with features suggesting chronic endometritis, dense stroma, secretory glands, and focal stromal breakdown' HCG done today was less than 2 PFSH Medical History (Updated 09/28/24 @ 11:12 by Neftali Reyez MD) Obesity Surgical History (Updated 09/28/24 @ 11:07 by Palak Farris CMA) Hx of dilation and curettage Hx of tonsillectomy Hx of section Family History (Updated 09/28/24 @ 11:08 by Palak Farris CMA) Father Diabetes HTN (hypertension) Maternal Grandmother HTN (hypertension) Breast cancer Social History (System 07/30/24 @ 12:31 by Soniya Suarez) Household Members Other:: daughter Housing: Apartment Alcohol intake: never Patient Tobacco Use Status: Never used Tobacco Substance Use Type: Marijuana Current occupational status: employed Current occupation: communication assistant in a [employer] Sexual orientation: Straight/Heterosexual Gender identity: Female Review of Systems Const All systems reviewed & are unremarkable except as noted in HPI and below Reports as per HPI and Reports no additional complaints GI Reports no additional complaints Reports no additional complaints Assessment & Plan Assessment & Plan (1) Incomplete : Comment: Status post suction D&C Code(s): O03.4 - Incomplete spontaneous without complication Category: Medical Plan: Discussed with the patient the results of the pathology, hCG level. Offered the patient different options of control, the patient would like to think about it and get back to us All questions answered, the patient verbalized understanding Orders: Orders HCG Quantitative Today O03.4 - Incomplete spontaneous without complication Coding Level of Care Code Est Pt Level 3 (25715) Diagnoses Incomplete O03.4
[2024-09-28 11:05] VITALS: BP 118/72; BMI 43.2
--- OUTSIDE RECORDS SUMMARY | 2024-09-28 13:16 | XMS_ITS | Clinical Summary ---
Author Organization [facility] [address] [place] [address] [place] [phone] Phone Care Team Providers Care Psychiatric Tech Name Role Phone Les Meier MD Primary Care Provider Allergies No known active allergies Medications metroNIDAZOLE (METROGEL) 0.75 % (37.5mg/5 gram) vaginal gel Insert 1 Applicatorful into the vagina at bedtime. for 5 nights 4 Active PNV,calcium 68-rpgt-qksja acid (M- Plus) 27 mg iron- 1 [...] Date in multigravida 08/31/2024 Overview (08/31/2024): 1. [facility] site: [facility]: [address] [place] [address] ([phone]) 2. Delivery site: [facility] 3. Mobile Mommas: 4. 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 09/14/2024 Telephone Adult Medicine [address] [phone] Les Meier MD 09/14/2024 Telephone Obstetrics and Gynecology [address] [phone] Mari Sinha RN 09/11/2024 Telephone Adult Medicine [address] [phone] Les Meier MD Hospital Follow-up 09/10/2024 Telephone Obstetrics and Gynecology [address] [phone] Mary Gavin MD Appointment 09/09/2024 Telephone Obstetrics and Gynecology [address] [place] [phone] Mari Sinha RN 09/08/2024 Telephone Obstetrics & Gynecology - [address] [phone] Elmira Larry CNM 09/04/2024 Telephone Obstetrics and Gynecology - [address] [phone] Keturah Ascencio CNM Letter for School/Work 09/02/2024 11:15 AM EDT Routine Obstetrics and Gynecology - [address] [phone] Keturah Ascencio CNM Bleeding in early (Primary Dx) 09/02/2024 10:56 AM EDT - 09/02/2024 11:59 PM EDT Hospital Encounter Radiology Department - [address] [phone] Hemorrhage in early Discharge Disposition: Home or Self Care 09/01/2024 Telephone Obstetrics and Gynecology - [address] [phone] Keturah Ascencio CNM Problem 08/31/2024 10:00 AM EDT Clinical Support Obstetrics and Gynecology - [address] [phone] care, subsequent in first trimester (Primary Dx); Obesity in ; in multigravida; History of section 07/27/2024 9:00 AM EST Clinical Support Obstetrics and Gynecology - [address] [phone] Irregular menstrual cycle (Primary Dx) from Last [...] TONSILLECTOMY ADENOIDECTOMY, BILATERAL MYRINGOTOMY AND TUBES PROCEDURE: [place] TONSILLECTOMY & ADENOIDECTOMY <AGE 11 CHOLECYSTECTOMY PROCEDURE: [place] CHOLECYSTECTOMY SECTION 03/08/2020 PROCEDURE: HISTORICAL DELIVERY Medical [...] your loved ones. For example, child care cook or elderly care for an older adult? [...] old female at 10w5d. This is a [place] The patient feels happy about the . [...] to the above questions, is this for taoist reasons? No Do you know what your [...] Oliveira has also been informed of the blueprint blocker provider recommendation for first trimester nuchal lucency [...] Genetic Testing has been reviewed and the PSafe information sheet has been provided to the [...] For Horizon Carrier Screening, if patient has [email or web address], [facility] or [employer] insurances: Not Applicable Electronically signed by: Mari [...] Description 10/14/2024 3:45 PM EDT Clinical Support [address] [phone] 10/21/2024 4:15 PM EDT Clinical Support [address] [phone] 01/28/2025 11:30 AM EDT Office Visit [address] [phone] Les Meier MD [address] [place], [place] Health Maintenance Due Date Last Done [...] resultswithin the time period is included. Pathologist [facility] hCG Quant 2 mIU/mL LAB CHEMISTRY METHOD 09/23/2024 5:44 PM EDT [facility] Blood Venous blood specimen / Unknown Venipuncture / Unknown 09/23/2024 1:27 PM EDT 09/23/2024 1:27 PM EDT Narrative [facility] - 09/23/2024 5:44 PM [...] CNM LAB BLOOD ORDERABLES Final Res ult [facility] [address] [place] [address], * External Ultrasound Report (09/09/2024) Only the [...] Ascencio on 09/02/2024 at 11:30 AM via ZenCard text -------- FINAL REPORT -------- Dictated By: Dimitrios Anne Dictated Date: 09/02/2024 11:46 ET Assigned Physician: Dimitrios Anne Reviewed and Electronically Signed By: Dimitrios Anne Signed Date: 09/02/2024 11:49 ET Workstation ID: [id number] Transcribed By: Self Edit Transcribed Date: 09/02/2024 [...] Single intrauterine with estimated gestational age 6weeks [id number] without cardiac activity. Findings are concerning for demise.Close clinical follow-up, beta hCg and serial ultrasound as clinicallyindicated. Findings were sent to Keturah Ascencio on 09/02/2024 at 11:30 AM via TrendMDt -------- FINAL REPORT -------- Dictated By: Dimitrios Anne Dictated Date: 09/02/2024 11:46 ET Assigned Physician: Dimitrios Anne Reviewed and Electronically Signed By: Dimitrios Anne Signed Date: 09/02/2024 11:49 ET Workstation ID: [id number] Transcribed By: Self Edit Transcribed Date: 09/02/2024 11:46 ET Mary Gavin MD IMG OB US PROCEDURES Final Result * Hepatitis C antibody (08/31/2024 12:36 PM EDT) [facility] Hepatitis C Antibody Negative Negative LAB CHEMISTRY METHOD 08/31/2024 3:37 PM EDT [facility] Blood Venous blood specimen / Unknown Venipuncture / Unknown 08/31/2024 12:36 PM EDT 08/31/2024 12:43 PM EDT Mary Gavin MD LAB BLOOD ORDERABLES Final Result [facility] [address] [place] [address], [place] [phone] * HIV 1,2 antibody, p24 antigen with reflex to differentiation (08/31/2024 12:36 PM EDT) [facility] HIV Combo AB/AG Negative Negative LAB CHEMISTRY METHOD 08/31/2024 3:38 PM EDT [facility] Blood Venous blood specimen / Unknown Venipuncture / Unknown 08/31/2024 12:36 PM EDT 08/31/2024 12:43 PM EDT Narrative [facility] - 08/31/2024 3:38 PM [...] BLOOD ORDERABLES Final Result Performing Organization Address [facility] de Phone Number [facility] [address] [place] [address], * Hepatitis B surface antigen with reflex to confirmation (08/31/2024 12:36 PM EDT) Hepatitis B Surface Ag Negative Negative LAB CHEMISTRY METHOD 08/31/2024 3:09 PM EDT [facility] Blood Venous blood specimen / Unknown Venipuncture / Unknown 08/31/2024 12:36 PM EDT 08/31/2024 12:43 PM EDT Narrative [facility] - 08/31/2024 3:09 PM EDT Over the counter supplements containing high doses of biotin may interfere with this assay. ??If interference is suspected, patients shoud be retested after refraining from biotin supplements for 72 hours. us Mary Gavin MD LAB BLOOD ORDERABLES Final Result Performing Organization Address [facility] de Phone Number [facility] [address] [place] [address], * Treponema pallidum antibody with reflex to RPR and particle agglutination (08/31/2024 12:36 PM EDT) T. Pallidum Antibodies Negative Negative LAB CHEMISTRY METHOD 08/31/2024 3:09 PM EDT [facility] Blood Venous blood specimen / Unknown Venipuncture / Unknown 08/31/2024 12:36 PM EDT 08/31/2024 12:43 PM EDT us Mary Gavin MD LAB BLOOD ORDERABLES Final Result Performing Organization Address City/[facility]/ZIP Co de Phone Number [facility] [address] [place] [address], * Venipuncture charge (08/31/2024 12:36 PM EDT) [facility] Extra Tube Hold for add-ons. 08/31/2024 2:01 PM EDT [facility] Comment:Auto resulted. Blood Venous blood specimen / Unknown Venipuncture / Unknown 08/31/2024 12:36 PM EDT 08/31/2024 12:43 PM EDT Mary Gavin MD LAB BLOOD ORDERABLES Final Result Performing Organization Address [facility]/ZIP Co de Phone Number [facility] [place], * GTT gestational 1 hour (08/31/2024 12:36 PM EDT) [facility] Glucose, 1 HR Gestational 126 See Comment mg/dL LAB CHEMISTRY METHOD 08/31/2024 2:21 PM EDT [facility] Blood Venous blood specimen / Unknown Venipuncture / Unknown 08/31/2024 12:36 PM EDT 08/31/2024 12:43 PM EDT Narrative [facility] - 08/31/2024 2:21 PM EDT Gestational Diabetes Challenge Reference Range: 1 hour Glucose <140 mg/dL Mary Gavin MD LAB BLOOD ORDERABLES Final Result Performing Organization Address [facility]/ZIP Co de Phone Number [facility] [address] [place] [address], [place] [phone] * CBC auto differential (08/31/2024 12:36 PM EDT) [facility] WBC 9.2 4.8 - 10.8 K/mcL LAB HEMETOLOGY METHOD [facility]2024 [facility] RBC 4.70 3.80 - 4.80 M/mcL LAB HEMETOLOGY METHOD 08/31/2024 2:08 PM [facility] Hemoglobin 12.9 11.5 - 16.0 g/dL LAB HEMETOLOGY METHOD 08/31/2024 2:08 PM [facility] Hematocrit 39.7 35.0 - 47.0 % LAB HEMETOLOGY METHOD 08/31/2024 2:08 PM [facility] MCV 85.2 79.0 - 98.0 FL LAB HEMETOLOGY METHOD 08/31/2024 2:08 PM [facility] MCH 27.7 27.0 - 32.0 pcg LAB HEMETOLOGY METHOD 08/31/2024 2:08 PM [facility] MCHC 32.5 32.0 - 37.0 g/dL LAB HEMETOLOGY METHOD 08/31/2024 2:08 PM [facility] RDW 12.9 11.0 - 15.0 % LAB HEMETOLOGY METHOD 08/31/2024 2:08 PM [facility] Platelets 340 130 - 400 K/mcL LAB HEMETOLOGY METHOD 08/31/2024 2:08 PM [facility] MPV 9.7 7.0 - 11.0 FL LAB HEMETOLOGY METHOD 08/31/2024 2:08 PM [facility] NRBC 0.0 <1.0 % LAB HEMETOLOGY METHOD 08/31/2024 2:08 PM [facility] NRBC Absolute 0.00 <0.10 K/mcL LAB HEMETOLOGY METHOD 08/31/2024 2:08 PM [facility] Neutrophils Relative 62.4 % LAB HEMETOLOGY METHOD 08/31/2024 2:08 PM [facility] Lymphocytes Relative 29.7 % LAB HEMETOLOGY METHOD 08/31/2024 2:08 PM EDT [facility] Monocytes Relative 4.7 % LAB HEMETOLOGY METHOD 08/31/2024 2:08 PM EDT [facility] Eosinophils Relative 2.7 % LAB HEMETOLOGY METHOD 08/31/2024 2:08 PM EDT [facility] Basophils Relative 0.2 % LAB HEMETOLOGY METHOD 08/31/2024 2:08 PM EDT [facility] Immature Granulocytes Relative 0.3 % LAB HEMETOLOGY METHOD 08/31/2024 2:08 PM EDT [facility] Neutrophils Absolute 5.71 1.50 - 7.00 K/mcL LAB HEMETOLOGY METHOD 08/31/2024 2:08 PM [facility] Lymphocytes Absolute 2.72 1.00 - 5.00 K/mcL LAB HEMETOLOGY METHOD 08/31/2024 2:08 PM EDT [facility] Monocytes Absolute 0.43 0.20 - 1.00 K/mcL LAB HEMETOLOGY METHOD 08/31/2024 2:08 PM EDT [facility] Eosinophils Absolute 0.25 0.00 - 0.50 K/mcL LAB HEMETOLOGY METHOD 08/31/2024 2:08 PM EDT [facility] Basophils Absolute 0.02 0.00 - 0.20 K/mcL LAB HEMETOLOGY METHOD 08/31/2024 2:08 PM EDT [facility] Immature Granulocytes Absolute 0.03 0.00 - 0.03 K/mcL LAB HEMETOLOGY METHOD 08/31/2024 2:08 PM [facility] Blood Venous blood specimen / Unknown Venipuncture / Unknown 08/31/2024 12:36 PM EDT 08/31/2024 12:43 PM EDT us Mary Gavin MD LAB BLOOD ORDERABLES Final Result Performing Organization Address City/[facility]/ZIP Co de Phone Number [facility] [address] [place] [address], [place] [phone] * Rubella antibody IgG (08/31/2024 12:36 PM EDT) [facility] Rubella IgG Quant 46.0 >=10.0 I Unit/mL LAB CHEMISTRY METHOD 08/31/2024 4:48 PM EDT [facility] Rubella IgG Antibody Interp Positive Positive LAB CHEMISTRY METHOD 08/31/2024 4:48 PM EDT [facility] Blood Venous blood specimen / Unknown Venipuncture / Unknown 08/31/2024 12:36 PM EDT 08/31/2024 12:43 PM EDT us Mary Gavin MD LAB BLOOD ORDERABLES Final Result Performing Organization Address [facility]/ZIP Co de Phone Number [facility] [address] [place] [address], [place] [phone] * Type and screen (08/31/2024 12:36 PM EDT) [facility] ABO Group A 08/31/2024 2:58 PM EDT [facility] Rh Type Positive 08/31/2024 2:58 PM EDT [facility] Antibody Screen Negative 08/31/2024 2:58 PM EDT [facility] Blood Venous blood specimen / Unknown Venipuncture / Unknown 08/31/2024 12:36 PM EDT 08/31/2024 12:43 PM EDT us Mary Gavin MD LAB BLOOD BANK TEST ORDERAB LES Final Result Performing Organization Address City/[facility]/ZIP Co de Phone Number [facility] [address] [place] [address], [place] [phone] * (ABNORMAL) Varicella zoster antibody IgG (08/31/2024 12:36 PM EDT) [facility] Varicella IgG Negative( A) Positive LAB CHEMISTRY METHOD 09/01/2024 8:45 AM EDT [facility] Varicella Zoster IgG 0.23(L) >=1.00 S/CO LAB CHEMISTRY METHOD 09/01/2024 8:45 AM EDT [facility] Blood Venous blood specimen / Unknown Venipuncture / Unknown 08/31/2024 12:36 PM EDT 08/31/2024 12:43 PM EDT Narrative [facility] - 09/01/2024 8:45 AM EDT Interpretation >= 1.00 S/CO is considered to be consistent with Immunity us Mary Gavin MD LAB BLOOD ORDERABLES Final Result Performing Organization Address [facility] de Phone Number [facility] [address] [place] [address], [place] [phone] * Hemoglobin A1c (08/31/2024 12:36 PM EDT) [facility] Hemoglobin A1C 5.5 <6.5 % LAB CHEMISTRY METHOD 08/31/2024 9:27 PM EDT [facility] Mean Bld Glu Estim. 111 mg/dL LAB CHEMISTRY METHOD 08/31/2024 9:27 PM EDT [facility] Blood Venous blood specimen / Unknown Venipuncture / Unknown 08/31/2024 12:36 PM EDT 08/31/2024 12:43 PM EDT us Mary Gavin MD LAB BLOOD ORDERABLES Final Result Performing Organization Address [facility] de Phone Number [facility] [address] [place] [address], [place] [phone] * (ABNORMAL) Drug abuse screen expanded with reflex confirmation, urine (08/31/2024 11:36 AM EDT) Amphetamine Screen, Ur Negative Negative LAB CHEMISTRY METHOD 5 4:29 PM [facility] Comment:Certain OTC medicati ons containing ephedrine, phenylephrine, pseudoephedrine and phenylpropanolamine can cause false positive results. Barbiturate Screen, Ur Negative Negative [facility] 4[facility] Benzodiazepine Screen, Ur Negative Negative LAB CHEMISTRY METHOD 5 4:29 PM [facility] Cocaine Screen, Ur Negative Negative LAB CHEMISTRY METHOD 5 4:29 PM [facility] Opiate Screen, Ur Negative Negative LAB CHEMISTRY METHOD 5 4:29 PM [facility] Cannabinoid (THC) Screen, Ur Positive(A ) Negative LAB CHEMISTRY METHOD 5 4:29 PM [facility] Comment:Specimens from patie nts taking pantoprazole sodium (Protonix) have been shown to produce false positive results. Fentanyl, Ur Negative Negative LAB CHEMISTRY METHOD 5 4:29 PM [facility] Oxycodone Screen, Ur Negative Negative LAB CHEMISTRY METHOD 5 4:29 PM [facility] Urine Urine specimen obtained by clean catch procedure / Unknown Non-blood Collection / Unknown 08/31/2024 11:36 AM EDT 08/31/2024 11:36 AM EDT Narrative [facility] - 08/31/2024 4:29 PM [...] Gavin MD LAB URINE ORDERABLES Final Result [facility] [address] [place] [address], * THC, urine, confirmation (08/31/2024 11:36 AM EDT) [facility] Tetrahydrocannabinoid (THC) 44 ng/mL 09/04/2024 12:10 AM [...] more. ? Confirmation (GC/MS) Decision Limit ?THC (75-for-5-kutwdts-9-ghsevibhnzuqwvpotiyb) ? 3 ng/mL ??Adulterant Decision Limit: ? General Oxidants ? 200 ug/mL ?The adulterant assay tests for General Oxidants, ??including Chromates and Nitrites. ??Adulterants are ??substances either ingested or added directly to a ??urine specimen to prevent the detection of drug use. If applicable, any drug confirmation testing reported here was developed and the performance characteristics determined by [facility]. This confirmation testing has not been cleared or approved by the FDA. The laboratory is regulated under CLIA as qualified to perform high-complexity testing. This test is used for patient testing purposes. It should not be regarded as investigational or for research. Test performed at [facility], [address] , [place], [place] ??[address] ? [phone] Angélica Urban MD, PhD - Predator Control Trapper Urine Urine specimen obtained by clean catch procedure / Unknown Non-blood Collection / Unknown 08/31/2024 11:36 AM EDT 08/31/2024 4:29 PM EDT us Mary Gavin MD LAB URINE ORDERABLES Final Result [facility] [address] [place] [address] * Culture urine (08/31/2024 11:36 AM EDT) Culture, Urine No growth 09/01/2024 9:19 AM EDT [facility] Urine Urine specimen obtained by clean catch procedure / Unknown Non-blood Collection / Unknown 08/31/2024 11:36 AM EDT 08/31/2024 11:36 AM EDT us Mary Gavin MD LAB MICROBIOLOGY - GENERAL ORDERABLES Final Result Performing Organization Address City/[facility]/ZIP Co de Phone Number [facility] [address] [place] [address], [place] [phone] * Pap smear (10/20/2021) 10/20/2021 Narrative HISTORICAL TESTING LAB RESULTING AGENCY - 11/03/2021 3:20 PM EDT [id number] THINPREP PAP, IMAGED: NEGATIVE FOR SQUAMOUS INTRAEPITHELIAL [...] Most Recently Relevant to Health Maintenance Insurance [facility] [employer] Care Teams Psychiatric Tech Relationship Specialty Start Date End Date Les Meier MD [address] [place] [address] PCP - General Internal Medicine 08/28/24
--- OUTSIDE RECORDS SUMMARY | 2024-09-28 13:16 | XMS_ITS | Encounter Summary ---
Author Organization [facility] Address [address] [place] [address] Care Team Providers Care Shear Grinder Operator Helper Name Role Phone Les Meier MD Primary Care Provider Reason for Visit * Reason Comments Immunizations Encounter Details Date Type Department Care Team (Latest Contact Info) Description 09/23/2024 2:00 PM EDT Clinical Support Adult [address] [phone] Need for varicella vaccine Social History Tobacco [...] Description 10/14/2024 3:45 PM EDT Clinical Support [address] [phone] 10/21/2024 4:15 PM EDT Clinical Support [address] [phone] 01/28/2025 11:30 AM EDT Office Visit [address] [phone] Les Meier MD [address] [place] [address] documented as of this encounter Procedures Procedure [...] documented as of this encounter Care Teams Shear Grinder Operator Helper Relationship Specialty Start Date End Date Les Meier MD [address] [place] [address] PCP - General Internal Medicine 08/28/24 documented as of this encounter
--- OUTSIDE RECORDS SUMMARY | 2024-09-28 13:16 | XMS_ITS | Encounter Summary ---
Author Organization [facility] [place] [address] Care Team Providers Care Converting Operator Name Role Phone Les Meier MD Primary Care Provider Reason for Visit * Reason Onset Date Comments Appointment 09/10/2024 Encounter Details Date Type Department Care Team ([facility] st Contact Info) Description 09/10/2024 Telephone Obstetrics and Gynecology [address] [phone] Mary Gavin MD [address], [place] Appointment Social History Tobacco Use Types [...] for your loved ones. For example, childcare worker or elderly care for an older [...] PM EDT Chief Complaint/problem: patient went to [facility] er on Saturday - she had D&C done on Saturday. She is calling in to see if she still needs to have her HCG levels checked and if she should keep her appointment on Saturday with Dr Gavin. Please advise How long has the patient had this problem? - Pt???s STAKEHOLDER MANAGER provider: Mary Gavin MD Last menstrual period (LMP) or EDC (due date): - documented in this encounter Plan of Treatment Upcoming Encounters Date Type Department Care Team (Late st Contact Info) Description 10/14/2024 3:45 PM EDT Clinical Support [address] [phone] 10/21/2024 4:15 PM EDT Clinical Support [address] [phone] 01/28/2025 11:30 AM EDT Office Visit [address] [phone] Les Meier MD [address] [place] [address] documented as of this encounter Visit Diagnoses Not on filedocumented in this encounter Additional Health Concerns Assessment Noted Time PHQ-9 Depression Total Score: 0 08/25/19 25 10:01 PM EDT documented as of this encounter Care Teams Converting Operator Relationship Specialty Start Date End Date Les Meier MD [address] [place] [address] PCP - General Internal Medicine 08/28/24 documented as of this encounter
== END 2024-09-28 11:33 | disposition home or self-care (01) ==
LOC: HO.HWS 11:02
PROVIDERS: PCP Internal Medicine; Visit Provider Obstetrics & Gynecology
DX: O03.4 Incomplete spontaneous abortion without complication (principal)
CPT/HCPCS: 99024